=== PATIENT | female | born 1960 | race Caucasian/White ===

== ENCOUNTER 2022-09-03 23:31 | Emergency (ER) | payer OTHER, SELFPAY ==
--- NOTE | ~2022-09-03 | CT_ITS ---
EXAMINATION: CT CHEST WITHOUT CONTRAST CLINICAL INFORMATION: Severe pain in the right scapular area. COMPARISON: None TECHNIQUE: Multidetector volumetric CT imaging of the chest was done. Axial MIP volume rendering provided. Sagittal and coronal reformatted images were obtained. This CT examination was performed using dose optimization techniques as appropriate, variously including the following: *Automated exposure control *Adjustment of mA and/or kV according to patient size (this includes techniques or standardized protocols for targeted exams where dose is matched to indication/reason for exam; i.e. extremities or head) *Use of iterative reconstruction technique DLP: 345 mGy-cm FINDINGS: LUNGS: Biapical subpleural thickening/scarring. Diffuse bronchial wall thickening and mild early centrilobular emphysematous changes. The central airways are patent. No focal consolidation or significant groundglass disease. There are areas of subsegmental mucus impaction in the right lower lobe, for instance image 436, series 4. There is a 0.6 cm groundglass nodule in the right upper lobe (4:209). There are a few additional sub-2 mm solid pulmonary nodules bilaterally, for instance in the left upper lobe on image 262, series 4. There is a calcified granuloma in the left upper lobe (4:264). MEDIASTINUM: Normal heart size. No pericardial effusion. No pathologically enlarged mediastinal lymph nodes. Normal appearance of the thyroid gland. Evaluation of the hilar structures is limited in the absence of IV contrast. CORONARY ARTERY CALCIFICATION: Present, mild to moderate. PLEURA: No pleural effusion or pneumothorax. AXILLA: No pathologically enlarged axillary lymph nodes. No chest wall mass. UPPER ABDOMEN: There are a few too small to characterize liver hypodensities, for instance in the left hepatic lobe images 72 and 77 and right hepatic lobe image 72, series 3. There are scattered calcifications in the pancreas, suggesting sequela of chronic pancreatitis. OSSEOUS STRUCTURES: No acute or aggressive appearing osseous abnormalities. Multilevel cervical thoracic spinal spondylosis. No acute fractures nor significant osteoarthritis of the shoulders. CT/CT chest wo IV con IMPRESSION: 1. There is a 0.6 cm groundglass nodule in the right upper lobe and a few additional sub-2 mm solid pulmonary nodules. 2. Diffuse bronchial wall thickening with scattered areas of mucus plugging suggesting small airways disease. 3. Query early centrilobular emphysematous changes. 4. There are a few too small to characterize liver hypodensities, which could be further evaluated with a dedicated liver ultrasound. 5. Scattered calcifications in the pancreas suggesting sequela of chronic pancreatitis. Assuming patient has no history of malignancy, recommend follow-up per Fleischner Society recommendations. According to the UPDATED 2017 Fleischner Society recommendations, the advised followup imaging for a single pure ground-glass nodule measuring 6 mm or greater is: CT at 6-12 months to confirm persistence, then CT every 2 years until 5 years if it persists.
[2022-09-04 00:17] VITALS: BP 138/54; PULSE 85; RESP 15; TEMP 36.5; O2SAT 95; BMI 27.0
--- NOTE | 2022-09-04 01:41 | ECG_ITS ---
Test Reason : ARM PAIN RADIATING Blood Pressure : / mmHG Vent. Rate : 087 BPM Atrial Rate : 087 BPM P-R Int : 170 ms QRS Dur : 088 ms QT Int : 354 ms P-R-T Axes : 087 074 045 degrees QTc Int : 425 ms Normal sinus rhythm Normal ECG No previous ECGs available Referred By: Kayla Villanueva Electronically Signed By:BERNARDO YOO MD
[2022-09-04 02:00] VITALS: BP 146/91; PULSE 92; RESP 16; O2SAT 98
--- NOTE | 2022-09-04 02:23 | ED.GENADULT ---
HPI - General Adult General Chief complaint: General Medical Stated complaint: Shoulder pain, no injury Time Seen by Provider: 09/04/22 01:10 Source: patient Mode of arrival: ambulatory History of Present Illness HPI narrative: 62-year-old female states that she was moving boxes yesterday and then developed acute onset of pinching/burning pain through her shoulder blade across her shoulder and down into her right upper extremity that she states was not associated with any falls or injury. Related Data Previous Rx's Medication Instructions Recorded cyclobenzaprine 10 mg tablet 10 mg PO BEDTIME PRN muscle spasm 09/04/22 #4 tabs ketorolac 10 mg tablet 10 mg PO Q6H PRN pain 5 days #20 09/04/22 tabs Allergies Allergy/AdvReac Type Severity Reaction Status Date / Time Unable to Assess Allergy Verified 09/04/22 01:37 Review of Systems Review of Systems: Pertinent positives and negatives as stated in HPI 10 point review of systems is otherwise negative. PMFSH Past Medical History Source: nursing notes reviewed Social History Social History Alcohol intake: never Smoked in Last 30 Days: No Use of substances other than those prescribed or required for medical reasons: No Advance Directives: No Physical Exam ED Vital Signs: Vital Signs - 24 hr 09/04/22 00:17 09/04/22 02:00 Temperature 97.7 F Pulse Rate 85 92 Respiratory Rate 15 16 Blood Pressure 138/54 L 146/91 H Pulse Oximetry 95 98 Oxygen Delivery Method Room Air Room Air BMI result Body Mass Index 27.0 VITAL SIGNS: Reviewed. GENERAL: Well developed, well nourished, in no acute distress. HEAD: Normocephalic/atraumatic EYES: PERRLA, EOMI EARS: Ext canals without abnormality OROPHARYNX: no oral lesions noted, posterior pharynx clear LUNGS: Normal breath sounds. No adventitious sounds or accessory muscle use. SpO2<98> CARDIOVASCULAR: Regular rate and rhythm without noted murmurs ABDOMEN: Soft, non-tender, non-distended with bowel sounds. MUSCULOSKELETAL: No tenderness, deformities, or effusions noted on gross inspection. EXTREMITIES: No cyanosis, clubbing or edema;RUE: Pain to palpation and crossed right AC joint at shoulder as well as noted muscle spasm across the upper back involving the superior aspect of the shoulder blade. Otherwise, distal evaluation of right upper extremity is without acute findings as sensation as well as vascular is intact with strong palpable radial and ulnar pulses.. SKIN: Inspection of the skin reveals no rashes NEUROLOGIC: Alert and oriented x 4. Strength and sensation to light touch were grossly intact x 4. Course Course Course Narrative: 62-year-old female with history and clinical presentation consistent with suspected pinched nerve, but will obtain CT of the chest and on review of those findings there are only noted pulmonary nodules but otherwise no evidence of pneumothorax or significant bony/joint injury. Patient received combination analgesics as well as muscle relaxants with gradual improvement of her pain with application of heat compresses. She is otherwise discharged home in stable condition. Medications Administered Discontinued Medications Generic Name Dose Route Start Last Admin Trade Name Freq PRN Reason Stop Dose Admin Acetaminophen 975 mg 09/04/22 02:24 09/04/22 02:28 Acetaminophen 325 Mg Tablet PO 09/04/22 02:25 975 mg ONCE ONE Administration Cyclobenzaprine HCl 10 mg 09/04/22 02:20 09/04/22 02:24 Cyclobenzaprine Hcl 10 Mg Tablet PO 09/04/22 02:21 10 mg ONCE ONE Administration Ketorolac Tromethamine 15 mg 09/04/22 02:24 09/04/22 02:28 Ketorolac Tromethamine 15 Mg/Ml Vial IM 09/04/22 02:25 15 mg ONCE ONE Administration Discharge Plan Discharge Clinical Impression: Muscle strain, Muscle spasm Patient Disposition: Home, Self-Care Instructions: Muscle Spasm (ED) Additional Instructions: 1. Tylenol 1000 mg, orally, every 6 hours as needed for pain control. Do not exceed 4000 mg within 24 hours. 2. Lidocaine patch, apply to area of maximal tenderness as directed on the outside packaging. 3. Recommend continued warm compresses for additional symptom relief. 4. Please follow-up with your primary care provider in the next 1-2 days for re-evaluation further outpatient management. Return to the ER for worsening symptoms. Prescriptions: New ketorolac 10 mg tablet 10 mg PO Q6H PRN (Reason: pain) 5 Days Qty: 20 0RF Rx Instructions: Patient received Toradol in the emergency room. cyclobenzaprine 10 mg tablet 10 mg PO BEDTIME PRN (Reason: muscle spasm) Qty: 4 0RF
[2022-09-04] MEDS: Cyclobenzaprine HCl 10 MG TABLET PO (02:24)
[2022-09-04] MEDS: Ketorolac Tromethamine 15 MG/ML VIAL IM (02:28)
[2022-09-04] MEDS: Acetaminophen 325 MG TABLET 975 MG PO (02:28)
--- NOTE | 2022-09-04 03:33 | PC.NURSE ---
pt right shoulder in 10/10 pain, pt unable to sit due to rad to lower back. at this time the ice was not working nor the medications so heat pack appied.
--- NOTE | 2022-09-04 05:03 | PC.NURSE ---
pt is now able to lay in the bed. pain leve from 25/10 to 5/10 after alternating heat and cold packs. pt is able to lay on her side supine. no distress and feels ready for discharge with a plan for pain. provider made aware.
[2022-09-04] MEDS: Lidocaine 4 % Patch ADH..PATCH 1 PATCH TRANSDERMA (06:05)
== END 2022-09-04 06:16 | disposition home or self-care (01) ==
PROVIDERS: Emergency Provider Student in an Organized Health Care Education/Training Program
DX: M25.511 Pain in right shoulder (principal); R10.11 Right upper quadrant pain; R07.89 Other chest pain; M54.6 Pain in thoracic spine
CPT/HCPCS: 71250; 93005; 96372; 99284; J1885

== ENCOUNTER 2025-06-30 09:28 | Outpatient (AMB) | payer OTHER, SELFPAY ==
--- OUTSIDE RECORDS SUMMARY | 2025-06-27 09:30 | XMS_ITS | Encounter Summary ---
Author Organization [facility] Address [address] [place] [address] Care Team Providers Care Automatic Machine Attendant Name Role Phone Deanna Marie MD Primary Care Provider [phone] Reason for Referral * Consultation (Routine) - Pending Review Specialty Diagnoses / Procedures Referred By Alonzo t Referred To Contact Nutrition / Internal Medicine Diagnoses Overweight (BMI 25.0-29.9) Deanna Marie MD [address] [place] [phone] Phone: tel: fax: Chichi Fox, RD [address] [place] [phone] Phone: tel: fax: Referral ID Status Reason Start Date Expiration Date Visits Requested Visits Authorized [id number] Pending Review Specialty Services Required 06/27/2025 06/27/2026 1 1 Reason for Visit * Reason Comments Physical Exam Tdap 2023 Encounter Details Date Type Department Care Team (Late st Contact Info) Description 06/27/2025 9:30 AM EDT Office Visit Adult Medicine [address] [phone] Deanna Marie MD [address] [place] [address] PE (physical exam), annual (Primary Dx); Lung nodule; Prediabetes; Overweight (BMI 25.0-29.9) Social History Tobacco Use Types Packs/Day Years Used Date Smoking Tobacco: Never Smokeless Tobacco: Never Tobacco Cessation:Counseling Given: Not Answered Alcohol Use Standard Drinks/Week Comments Yes 0 (1 standard drink = 0.6 oz pur e alcohol) Housing Instability Answer Date Recorde d Are you worried that in the next 2 months you may not have stable housing? No 06/26/2025 Food Access & Nutrition Answer Date Rec orded Do you have access to a vari ety of food including fruits and vegetables? Yes 06/26/2025 Access to Healthcare Answer Date Record ed Within the last 3 months, ho w many times did you visit the emergency department for your medical care? 0 06/26/2025 Health Literacy Answer Date Recorded How often do you need to hav e someone help you when you read instructions, pamphlets, or other written material from your doctor or pharmacy? Never 06/26/2025 Caregiver: How often do you need to have someone help you when you read instructions, pamphlets, or other written material from your doctor or pharmacy? Not on file 06/26/2025 Financial Risk Answer Date Recorded How hard is it for you to pa y for the very basics like food, housing, medical care, and air conditioning / heating? Not very hard 06/26/2025 Transportation Answer Date Recorded Has the lack of transportati on kept you from meetings, work, or from getting things needed for daily living? No Has the lack of transportati on kept you from medical appointments or from getting medications? No 06/26/2025 Social Isolation Answer Date Recorded How often do you feel lonely or isolated from th ose around you? Never 06/26/2025 Food Risk Answer Date Recorded Within the past 12 months we worried whether our food would run out before we got money to buy more. Never true 06/26/2025 Within the past 12 months th e food we bought just didn't last and we didn't have money to get more. Never true 06/26/2025 Dependent Care Answer Date Recorded Do you need help finding or paying for care for your loved ones. For example, child and family services worker or elderly care for an older adult? No 06/26/2025 Education Answer Date Recorded Do you think completing more education or training, like finishing a GED, going to college, or learning a trade, would be helpful for you? No 06/26/2025 Employment and Income Answer Date Recor ded During the last four weeks, have you been actively looking for work? No 06/26/2025 Living Situation Answer Date Recorded What is your living situation? 0 06/26/2025 Comments No Sex and Gender Information Value Date Recorded Sex Assigned at Not on file Legal Sex Female 1:39 AM EST Gender Identity Not on file Sexual Orientation Not on file documented as of this encounter Last Filed Vital Signs Vital Sign Reading Time Taken Comments Blood Pressure 132/78 06/27/2025 9:42 AM EDT Pulse 82 06/27/2025 9:42 AM EDT Temperature 36.6 C (97.8 F) 06/27/2025 9:42 AM EDT Respiratory Rate 14 06/27/2025 9:42 AM EDT Oxygen Saturation 98% 06/27/2025 9:42 AM EDT Inhaled Oxygen Concentration - - Weight 84.8 kg (187 lb) 06/27/2025 9:42 AM EDT Height 175.3 cm (5' 9 ) 06/27/2025 9:42 AM EDT Body Mass Index 27.62 06/27/2025 9:42 AM EDT documented in this encounter Ordered Prescriptions Prescription Sig Dispense Quantity Refills Last Filled Start Date End Date EPINEPHrine (EPIPEN) 0.3 mg/0.3 mL injection Inject 0.3 mL (0.3 mg total) into the thigh if needed for anaphylaxis. Call 911 after use. 1 each 06/27/2025 06/27/2026 documented in this encounter Progress Notes * Deanna Marie MD - 06/27/2025 9:30 AM EDTAssociated Problem(s): Lung nodule Lung nodule- last CT in July 2024-- stable since 2021, repeat in 2 years in 2025. * Deanan Marie MD - 06/27/2025 9:30 AM EDT Images from the original note were not included. Patient Education Well Visit, Ages 18 to 65: Care Instructions Well visits can help you stay healthy. Your doctor has checked your overall health and may have suggested ways to take good care of yourself. Your doctor also may have recommended tests. You can helpprevent illness with healthy eating, good sleep, vaccinations, regular exercise, and other steps. Get the tests that you and your doctor decide on. Depending on your age and risks, examples might include screening for diabetes; hepatitis C; HIV; and cervical, breast, lung, and colon cancer. Screening helps find diseases before any symptoms appear. Eat healthy foods. Choose fruits, vegetables, whole grains, lean protein, and low-fat dairy foods. Limit saturated fat and reduce salt. Limit alcohol. Men should have no more than 2 drinks a day. Women should have no more than 1. For some people, no alcohol is the best choice. Exercise. Get at least 30 minutes of exercise on most days of the week. Walking can be a good choice. Reach and stay at your healthy weight. This will lower your risk for many health problems. Take care of your mental health. Try to stay connected with friends, family, and community, and find ways to manage stress. If you're feeling depressed or hopeless, talk to someone. A counselor can help. If you don't have acounselor, talk to your doctor. Talk to your doctor if you think you may have a problem with alcohol or drug use. This includes prescription medicines, marijuana, and other drugs. Avoid tobacco and nicotine: Don't smoke, vape, or chew. If you need help quitting, talk to your doctor. Practice safer sex. Getting tested, using condoms or dental dams, and limiting sex partners can help prevent STIs. Use control if it's important to you to prevent . Talk with your doctor about your choices and what might be best for you. Prevent problems where you can. Protect your skin from too much sun, wash your hands, brush your teeth twice a day, and wear a seat belt in the car. Where can you learn more? Scan the QR code or Go to https://www.[employer].net/juanyennifer Enter P072 in the search box to learn more about Well Visit, Ages 18 to 65: Care Instructions. Current as of: February 20, 2024 Content Version: 14.5 ?? [id number] [place]. Care instructions adapted under license by your healthcare professional. If you have questions about a medical condition or this instruction, always ask your healthcare professional. [employer], disclaims any warranty or liability for your use of this information. * Deanna Marie MD - 06/27/2025 9:30 AM EDT Images from the original note were not included. Physical Examination Jennifer Manzo is a 65 y.o. female presenting for Physical Exam (Tdap 2023) Subjective History Of Present Illness: Patient is a 65 y/o female who is here for physical exam. Lung nodule- last CT in July 2024-- stable since 2021, repeat in 2 years in 2025. Following with [facility] for skin checks. UTD with eye exam and dental visit. Comprehensive Medical and Social History: Patient Active Problem List Diagnosis Allergic rhinitis Displacement of lumbar intervertebral disc without myelopathy Gastroesophageal reflux disease Lung nodule Sprain of metacarpophalangeal (MCP) joint of left little finger Varicose veins of both lower extremities Allergies Allergen Reactions Grass Pollen trees Mold Nitrofurantoin migraine jaeger Other Penicillin V Potassium Other Dizzy, edema Sulfa (Sulfonamide Antibiotics) Venom-Wasp Current Outpatient Medications Medication Instructions acetaminophen (TYLENOL) 500 mg tablet 1 tablet, Every 6 hours PRN albuterol HFA (PROAIR HFA ; PROVENTIL HFA ; VENTOLIN HFA) 90 mcg/actuation inhaler 2 puffs, 4 timesdaily PRN aspirin (ASPIR-81 ORAL) 81 mg, Every 7 days calcium carbonate (OS-EUGENE) 1,250 mg, oral cholecalciferol (VITAMIN D-3) 25 mcg (1,000 unit) capsule Take by mouth. 3-4 x per week CRANBERRY ORAL Take by mouth. EPINEPHrine (EPIPEN) 0.3 mg, intramuscular, As needed, Call 911 after use. Fe gluconate/vit C/folic acid (IRON-C ORAL) Take by mouth. FLAXSEED ORAL Take by mouth. 3-4 times a week ibuprofen (ADVIL,MOTRIN) 600 mg tablet 1 tablet, Every 6 hours PRN MULTIVITAMIN ORAL Take by mouth. NON FORMULARY Once a month Past Medical History: Diagnosis Date Actinic keratosis, hx of DX:Actinic keratosis, hx of Lumbago 05/23/2008 DX:Lumbago Past Surgical History: Procedure Laterality Date COLONOSCOPY 05/31/2011 PROCEDURE: HISTORICAL COLONOSCOPY; COMMENT: normal; repeat in ten years COLONOSCOPY 04/07/2022 PROCEDURE: HISTORICAL COLONOSCOPY; COMMENT: Normal repeat 10 years Social History Socioeconomic History Marital status: Spouse name: None Number of children: None Years of education: None Highest education level: None Occupational History None Tobacco Use Smoking status: Never Smokeless tobacco: Never Substance and Sexual Activity Alcohol use: Yes Drug use: No Sexual activity: None Other Topics Concern None 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 Their 2 daughters are coming back from college tomorrow for break. Oldest son is out of the home. 1 dog, 1 cat, and 1 rabbit in her home. Nonsmoking household. She is up to date 12/15/2015: still studying in [place]; graduating in February 2016. Family History Problem Relation Name Age of Onset Breast cancer Mother Other (Other: prostate cancer) Father diagnosed at 86, at 88 Heart failure Father in 80s Diabetes Mother's side great aunts and uncles Breast cancer Other m.great aunt Colon cancer Neg Hx Ovarian cancer Neg Hx Immunization History Administered Date(s) Administered DTP 1961, 1961, 1961, 07/14/1962, 12/07/1962, 10/23/1967, 10/23/1970 Hepatitis A Adult (Havrix; Vaqta) 19yo and older 01/07/2008, 09/03/2008 Hepatitis B (Pqibqnp-Q-Rywzv, Recombivax HB-Adult) 19yo and older 01/16/2013, 02/13/2013, 07/17/2013 IPV Inactivated polio (Ipol) 6wks and older 1961, 1961, 01/11/1962 Influenza trivalent, 0.5mL, preservative free (Fluarix; FluLaval; Fluzone) ages 6mo and older (Afluria) 3 years and older 08/04/1998, 11/18/1999, 09/28/2009 Influenza, Unspecified 08/26/2019 MMR, measles mumps and rubella Live (Priorix; M-M-R II) 12mo and older 01/16/2013, 05/29/2013 Measles 04/03/1979 Moderna SARS-CoV-2 COVID-19, mRNA, LNP-S, preservative free 12/23/2020, 01/20/2021 OPV 04/22/1979 Pneumococcal conjugate 20 valent (Prevnar 20, PCV 20) 2mo and older 02/23/2024 Rubella 10/23/1969 Smallpox 02/22/1962 Td Tetanus diptheria (Tdvax) 7yo and older 07/29/1975 Td, Unspecified 09/22/2004 Tdap Tetanus diptheria acellular pertussis (Boostrix; Adacel) 7yo and older 01/09/2013, 05/27/2024 Zoster recombinant (Shingrix) 19yo and older 07/26/2024, 09/27/2024 Health Maintenance Topic Date Due COVID-19 Vaccine (3 - Moderna risk series) 02/17/2021 HIV Screening Never done Influenza Vaccine (1) 06/23/2025 Breast Cancer Screening 11/01/2025 Social Influencers of Health Screening 06/26/2026 Cervical Cancer Screening: HPV 12/08/2026 Cholesterol Screening (Lipid Panel) 07/23/2029 Colorectal Cancer Screening: Colonoscopy 04/07/2032 DTaP,Tdap,and Td Vaccines (10 - Td or Tdap) 05/27/2034 RSV Immunization Adult Patients (1 - 1-dose 75+ series) 01/03/2036 Hepatitis B Vaccines Completed IPV Vaccines Completed Pneumococcal Vaccine: 50+ Years Completed Zoster Vaccines Completed Hepatitis C Screening Completed Depression Screening Completed HIB Vaccines Aged Out Hepatitis A Vaccines Aged Out MMR Vaccines Aged Out Varicella Vaccines Aged Out Meningococcal ACWY Vaccine Aged Out Meningococcal B Vaccine Aged Out HPV Vaccines Aged Out RSV Immunization Patients Under 20 months Aged Out Depression Screening (PHQ2/9): Depression Screening Over the last 2 weeks, how often have you been bothered by little interest or pleasure in doing things?: (Patient-Rptd) Not at all Over the last 2 weeks, how often have you been bothered by feeling down, depressed, or hopeless?: (Patient-Rptd) Not at all Depression Risk: (Patient-Rptd) 0 PHQ9 Full Set of Questions Over the last 2 weeks, how often have you been bothered by little interest or pleasure in doing things?: (Patient-Rptd) Not at all Over the last 2 weeks, how often have you been bothered by feeling down, depressed, or hopeless?: (Patient-Rptd) Not at all PHQ -9 Depression Risk Score: (Patient-Rptd) 0 Screening Result: (Patient-Rptd) Negative Risk Category: (Patient-Rptd) Negative Anxiety Screening: Social Influencer of Health (SIOH): Social Influencers of Health Within the past 12 months we worried whether our food would run out before we got money to buy more.: (Patient-Rptd) Never true Within the past 12 months the food we bought just didn't last and we didn't have money to get more.: (Patient-Rptd) Never true How hard is it for you to pay for the very basics like food, housing, medical care, and air conditioning / heating?: (Patient-Rptd) Not very hard Are you worried that in the next 2 months you may not have stable housing?: (Patient-Rptd) No Do you have access to a variety of food including fruits and vegetables?: (Patient-Rptd) Yes Within the last 3 months, how many times did you visit the emergency department for your medical care?: (Patient-Rptd) 0 Has the lack of transportation kept you from meetings, work, or from getting things needed for daily living?: (Patient-Rptd) No Has the lack of transportation kept you from medical appointments or from getting medications?: (Patient-Rptd) No How often do you feel lonely or isolated from those around you?: (Patient-Rptd) Never How often do you need to have someone help you when you read instructions, pamphlets, or other written material from your doctor or pharmacy?: (Patient- Rptd) Never Review of Systems: Review of systems: Pertinent items are noted in HPI Objective BP 132/78 Pulse 82 Temp 36.6 ??C (97.8 ??F) (Temporal) Resp 14 Ht 1.753 m (69 ) Wt 84.8 kg (187 lb) BMI 27.62 kg/m?? SpO2: 98 % Blood pressure 132/78, pulse 82, temperature 36.6 ??C (97.8 ??F), temperature source Temporal, resp. rate 14, height 1.753 m (69 ), weight 84.8 kg (187 lb), SpO2 98%. Body mass index is 27.62 kg/m??.BMI is greater than 25.0 (above the normal range) - see Plan APPEARANCE: Alert and in no acute distress EYES: PERRLA, conjunctiva and sclera normal EARS: External ears normal. Canals clear. TMs normal. NOSE/SINUS: Nares normal. Septum midline. Mucosa normal. No drainage or sinus tenderness MOUTH/THROAT: no erythema, lesions, or exudates NECK: Neck supple, no adenopathy, thyroid symmetric and of normal size HEART: RRR with normal S1 and S2, no murmurs, no gallops, no JVD appreciated LUNG: clear to auscultation bilaterally ABDOMEN: Bowel sounds normoactive, no bruits and soft, non-tender, without organomegaly or palpablemasses BACK: no pain to palpation EXTREMITIES: Extremities warm and well perfused without clubbing, cyanosis, or edema NEURO: Awake, alert and oriented x 3 and Normal gait SKIN: Skin color, texture, turgor normal. No rashes or lesions. Assessment/Plan Patient completed physical examination today. Health Care Maintenance and Immunizations reviewed. 1. Health maintenance: The patient presented for an evaluation of general health. As part of this visit, we reviewed the following issues, which are considered an essential part of preventative health in this age group: - Breast cancer screening, which includes clinical exam and mammograms annually - mammogram up-to-date - Colon cancer screening (colonoscopy every 10 years/annual FOBT plus flexi sigmoidoscopy every 5 years/double-contrast BE every 5 years/Cologuard every 3 years/Annual FOBT) - up to date - Cervical cancer testing every 1-5 years - patient is up-to-date - Blood pressure annual screening performed - Cholesterol screening every five years - ordered - Osteoporosis prevention including calcium/vitamin D intake, weight bearing exercise & smokingcessation - Nutritional and exercise counseling - patient advised to pursue at least 30 minutes of exercise most days of the week, limit portion sizes, eat breakfast, and avoid eating after dinner - Counseling of injury prevention including fire prevention, smoke alarms and seat belt usage - Screening for depression - using the PHQ-9 - Education about skin cancer - Recommendations about immunizations - patient is up-to-date on immunizations - Recommendation of an eye exam for glaucoma every 2-4 years in this age range - patient is up-to-date - Screening for substance abuse (including tobacco, alcohol, and recreational drugs) - see Substance & Sexuality section of medical record - Genetic cancer risk screening - NO INDICATION: Hereditary Cancer Syndrome Risk Assessment completed and evaluated. No indication found for genetic testing at this time. - In addition to reviewing these issues, I have reviewed the following sections of the chart: Past Medical History, Social History, and Social History - Did you have a dental visit in the last 12 months? Yes - Did you have a dental problem in the last 6 months? No Assessment & Plan PE (physical exam), annual Orders: CBC and differential; Future Comprehensive metabolic panel; Future Lipid panel with reflex to direct LDL; Future Lung nodule Lung nodule- last CT in July 2024-- stable since 2021, repeat in 2 years in 2025. Prediabetes Orders: Hemoglobin A1c; Future Overweight (BMI 25.0-29.9) Orders: Ambulatory referral to Nutrition Services; Future Discussed the patient's BMI with her. The BMI is above average. The patient received dietary education, exercise education, and refer to nutrition because they have an above normal BMI. Patient was counseled on the following: Eat healthy foods. Choose fruits, vegetables, whole grains,lean protein, and low-fat dairy foods. Limit saturated fat and reduce salt. Exercise. Get at least 30 minutes of exercise on most days of the week. Walking can be a good choice. Reach and stay at your healthy weight. This will lower your risk for many health problems. Take care of your mental health. Try to stay connected with friends, family, and community, and find ways to manage stress. Avoid tobacco and nicotine: Don't smoke, vape, or chew. If you need help quitting, please do not be afraidto reach out. [place] your teeth twice a day and follow routinely with the dentist. Safety Issues- Always wear a seat belt and a helmet when in a bike or motorcycle. Apply Sunscreen daily to your face and body if appropriate. Aim to get at least 7 hours of sleep to maintain good health and well-being. Deanna Marie MD ADULT MEDICINE [address] Dept: [phone] Dept Date of Service: 06/27/2025 documented in this encounter Plan of Treatment Upcoming Encounters Date Type Department Care Team (Late st Contact Info) Description 11/03/2025 7:30 AM EST Appointment Radiology Department - [address] [phone] Scheduled Orders Name Type Priority Associated Diagnoses Orde r Schedule CBC and differential Lab Routine PE (physical exam), annual Expected: 06/27/2025, Expires: 12/25/2025 Comprehensive metabolic panel Lab Routine PE (physical exam), annual Expected: 06/27/2025, Expires: 12/25/2025 Lipid panel with reflex to direct LDL Lab Routine PE (physical exam), annual Expected: 06/27/2025, Expires: 06/27/2026 Hemoglobin A1c Lab Routine Prediabetes Expected: 06/27/2025, Expires: 12/25/2025 Scheduled Referrals Name Type Priority Associated Diagnoses Order Schedule Ambulatory referral to Nutrition Services Outpatient Referral Routine Overweight (BMI 25.0-29.9) 1 Occurrences starting 06/27/2025 until 06/27/2026 documented as of this encounter Visit Diagnoses Diagnosis PE (physical exam), annual- Primary Lung nodule Other diseases of lung, not elsewhere classified Prediabetes Other abnormal glucose Overweight (BMI 25.0-29.9) Overweight documented in this encounter Historical Medications * This list may reflect changes made after this encounter. calcium carbonate (OS-EUGENE) 1250 mg (500 mg elemental calcium) chewable tablet Chew 1 tablet (1,250 mg total). added in this encounter Additional Health Concerns Assessment Noted Time PHQ-9 Depression Total Score: 0 06/26/20 25 9:55 PM EDT documented as of this encounter Care Teams Automatic Machine Attendant Relationship Specialty Start Date End Date Deanna Marie MD [address] [place] [phone] PCP - General Internal Medicine 06/06/22 documented as of this encounter
--- OUTSIDE RECORDS SUMMARY | 2025-06-30 10:41 | XMS_ITS | Encounter Summary ---
Author Organization [facility] Address [address] [place] [address] Care Team Providers Care Millstone Cleaner Name Role Phone Becca Butler MD Primary Care Provider Yasemin Kulkarni MD Primary Care Provider Unavailable Iván Rodrigues Primary Care Provider [phone] Deanna Maire MD Primary Care Provider [phone] Fracisco Hilario Primary Care Provider [phone] Reason for Visit * Reason Comments medication problems Encounter Details Date Type Department Care Team Description 03/15/2001 Telephone Adult Medicine [address] [id number] Jose Booth PA-C medication problems Social History Tobacco Use Types Packs/Day Years Used Date Smoking Tobacco: Never Assessed Sex Assigned at Date Recorded Not on file Job Start Date Occupation Industry Not on file Not on file Not on file documented as of this encounter Miscellaneous Notes * Telephone Encounter - 03/15/2001 11:03 AM EDTDAVIXavier BOOTH SPOKE TO PT AND CALLED IN DOXYCYCLINE 100MG BID-JAMMIE CARDONA * Telephone Encounter - 03/15/2001 9:27 AM EDT [facility] Telephone Triage Documentation CHIEF COMPLAINT:bactrim giving her diahrrea, and nausea. taken 3 pills.taking med with food. no vomi ting. taking for sinus infection, does not remember if she has had different antibiotics before for sinus infection. i will talk with jose to see if a different ab can be substituted. PATIENT'S PCP:Dr. Apolinar Ruiz LMP/EDC: MEDS:jc qd. ALLERGIES:pcn PMH:allergies DISPOSITION:Call referred to jose RAHMAN pac REFERENCE: CALLER UNDERSTANDS & AGREES WITH ADVICE:YES * Telephone Encounter - 03/15/2001 9:20 AM EDTCALL RECEIVED. Contact: self [phone] pt is calling to speak to mr booth about medication bactrim 800 /160 mg 20 bid and it is making her si ck is calling to get some else please call pt at above number documented in this encounter Plan of Treatment Not on file documented as of this encounter Visit Diagnoses Not on filedocumented in this encounter Care Teams Millstone Cleaner Relationship Specialty Start Date End Date Becca Butler MD PCP - General 01/20/11 03/15/22 [place]-Yasemin Pendleton MD PCP - General 06/23/0601/19 Iván Rodrigues [address] [place] [id number] PCP - General 02/14/1998 06/22/06 Deanna Marie MD [address] [place] [id number] PCP - General Internal Medicine 06/06/22 Fracisco Hilario [address] [place] [phone] PCP - General Internal Medicine 04/07/22 06/05/22 documented as of this encounter
--- OUTSIDE RECORDS SUMMARY | 2025-06-30 10:41 | XMS_ITS ---
Author Name [facility] Organization Unknown Encounters Encounter Type Encounter Reason Primary Diagnosis Location Date Ambulatory [facility], [facility]. ([facility]) 10/20/2024 Care Team Organization Name Specialty Phone Email Start Date End Da te [facility] Deanna Primary Care 03/31/2023 024 [facility] Primary Care 02/27/2023 024 [facility] la [place] [facility] Primary Care 10/31/2022 06/10/2024 [facility] [place] [facility] Primary Care 08/30/2022 06/10/2024
--- OUTSIDE RECORDS SUMMARY | 2025-06-30 10:41 | XMS_ITS | Clinical Summary ---
Author Organization [facility] Address [address] [place] [address] Care Team Providers Care Medical Social Worker Name Role Phone Becca Butler MD Primary Care Provider [phone] Allergies Active Allergy Reactions Criticality Noted Date Comments Elemental Sulfur 05/15/2019 Nitrofurantoin 05/15/2019 Other 05/15/2019 Dust/Mold/Pollen/Grass/Trees/Weeds Penicillins 05/15/2019 Medications Medication Sig Dispensed Refills Start Date End Date Status UNABLE TO FIND Allergy Injections 0 Ac tive Fexofenadine HCl (ANDRZEJ PO) Take by mouth. 0 Active raNITIdine HCl (ACID INSIDE CONTRACTOR SALES PO) Take by mouth. 0 Active Multiple Vitamins-Minerals (MULTIVITAMIN PO) Take by mouth. 0 Act rubén Flaxseed, Linseed, (FLAX SEEDS PO) Take by mouth. 0 Activ e UNABLE TO FIND Tumeric 0 Active aspirin 81 MG tablet Take 81 mg by mouth 2 (two) times a week. 0 Active Active Problems Problem Noted Date Diagnosed Date Sprain of metacarpophalangea l (MCP) joint of left little finger 05/15/2019 Social History Tobacco Use Types Packs/Day Years Used Date Smoking Tobacco: Never Smokeless Tobacco: Never Sex and Gender Information Value Date Recorded Sex Assigned at Not on file Gender Identity Not on file Sexual Orientation Not on file Job Start Date Occupation Industry Not on file Not on file Not on file Last Filed Vital Signs Vital Sign Reading Time Taken Comments Blood Pressure 141/76 03/16/2023 9:36 AM EDT Pulse 70 03/16/2023 9:36 AM EDT Temperature 36.2 C (97.2 F) 03/16/2023 9:36 AM EDT Respiratory Rate - - Oxygen Saturation 97% 03/16/2023 9:36 AM EDT Inhaled Oxygen Concentration - - Weight 87.1 kg (192 lb) 03/16/2023 9:36 AM EDT Height 176.5 cm (5' 9.5 ) 03/16/2023 9:36 AM EDT Body Mass Index 27.95 03/16/2023 9:36 AM EDT Plan of Treatment Health Maintenance Due Date Last Done Comments Hepatitis C Screening 1961 COVID-19 Vaccine (#1) 1961 Depression Screening 1973 BMI Counseling 1979 Preventative Health Evaluation 1979 Cervical Cancer Screening (Pap Smear) 1982 Colon Cancer Screening (Colonoscopy) 2006 Breast Cancer Screening (Mammogram) 2011 Shingrix-Zoster Vaccine (1 of 2) 2011 DTap / Tdap / Td (7 - Td or Tdap) 01/09/2023 01/09/2013, 07/29/1975, 10/23/1970, Additional history exists Influenza Vaccine (#1) 2025 9, 11/18/1999, 08/04/1998 Pneumococcal Vaccine (1 of 1 - PCV) 2026 RSV Adult > 60+ Yrs or (1 - 1-dose 75+ series) 01/03/2036 Hepatitis B Vaccines Completed 07/17/2013, 02/13/2013, 01/16/2013 Pneumococcal Vaccine Aged Out No long er eligible based on patient's age to complete this topic RSV Ped < 20 months Aged Out No longe r eligible based on patient's age to complete this topic Care Teams Medical Social Worker Relationship Specialty Start Date End Date Becca Butler MD PCP - General Internal Medicine 05/15/19
--- OUTSIDE RECORDS SUMMARY | 2025-06-30 10:42 | XMS_ITS | Encounter Summary ---
Author Organization [facility] Address [address] [place] [address] Care Team Providers Care Traffic Expert Name Role Phone Deanna Marie MD Primary Care Provider [phone] Reason for Referral * Radiology Services (Routine) - Closed Specialty Diagnoses / Procedures Referred By Alonzo stiles Referred To Contact Radiology Diagnoses Lung nodule Procedures CAT SCAN OF CHEST NO CONTRAST Deanna Marie MD [address] [place] [address] [address] [address] Referral ID Status Reason Start Date Expiration Date Visits Re quested Visits Authorized [id number] Closed 06/15/2023 12/12/2023 1 1 Encounter Details Date Type Department Care Team Description 03/15/2023 Orders Only Adult Medicine [address] [address] Deanna Marie MD [address] [place] [address] Lung nodule (Primary Dx) Social History Tobacco Use Types Packs/Day Years Used Date Smoking Tobacco: Never Smokeless Tobacco: Never Alcohol Use Standard Drinks/Week Comments Yes 0 (1 standard drink = 0.6 oz pur e alcohol) rare Sex Assigned at Date Recorded Not on file Job Start Date Occupation Industry Not on file Not on file Not on file COVID-19 Exposure Response Date Recorded In the last 10 days, have yo u been in contact with someone who was confirmed or suspected to have Coronavirus/COVID-19? No / Unsure 03/10/2023 8:19 AM EDT documented as of this encounter Plan of Treatment Not on file documented as of this encounter Results * CAT SCAN OF CHEST NO CONTRAST (06/20/2023 8:24 AM EDT) 06/20/2023 9:26 AM EDT Impressions [facility] - 06/20/2023 9:41 AM EDT IMPRESSION: Irregular shaped right lower lobe pulmonary nodule is essentially unchanged or minimally clear. 6-12 months follow up chest CT is recommended. Narrative [facility] EX[facility] - 06/20/2023 9:41 AM EDT CAT SCAN OF CHEST NO CONTRAST TECHNIQUE: Multidetector CT of the chest was performed without intravenous contrast. Comparison: Chest CT on March 10, 2023 HISTORY: Lung nodule FINDINGS: Devices/Tubes/Lines: None. Lungs: Central airways are patent. No pulmonary consolidation. Pulmonary nodules/opacities as follows: -Right upper lobe 0.5 cm groundglass nodule (2:65), unchanged -Irregular shaped opacity associated with some central groundglass component in the anterior aspect of the right lower lobe (2:225) appears essentially unchanged or minimally clearing compared to the previous exam. -Pleural-based presumed focal atelectasis in the posteromedial aspect of the left lower lobe (2:221), unchanged. -No new or enlarging pulmonary nodules. Pleura: No pleural effusion or pneumothorax. Mediastinum: No thyroid nodules. Heart is normal in size. No pericardial effusion. No coronary artery calcifications. No thoracic aortic aneurysm. Scattered atherosclerotic calcifications. Lymph Nodes: No enlarged supraclavicular, axillary, mediastinal, or hilar lymph nodes. Upper Abdomen: No suspicious abnormality seen. Scattered vascular calcifications. Absence of intravenous contrast limits sensitivity for detecting solid organ findings. Chest Wall: No chest wall mass. Bones: No suspicious lytic or blastic lesions. Procedure Note Yumiko Diop MD - 06/20/2023 CAT SCAN OF CHEST NO CONTRAST TECHNIQUE: Multidetector CT of the chest was performed without intravenouscontrast. Comparison: Chest CT on March 10, 2023 HISTORY: Lung nodule FINDINGS: Devices/Tubes/Lines: None. Lungs: Central airways are patent. No pulmonary consolidation. Pulmonarynodules/opacities as follows: -Right upper lobe 0.5 cm groundglass nodule (2:65), unchanged -Irregular shaped opacity associated with some central groundglasscomponent in the anterior aspect of the right lower lobe (2:225) appears essentially unchanged orminimally clearing compared to the previous exam. -Pleural-based presumed focal atelectasis in the posteromedial aspect ofthe left lower lobe (2:221), unchanged. -No new or enlarging pulmonary nodules. Pleura: No pleural effusion or pneumothorax. Mediastinum: No thyroid nodules. Heart is normal in size. No pericardialeffusion. No coronary artery calcifications. No thoracic aortic aneurysm. Scatteredatherosclerotic calcifications. Lymph Nodes: No enlarged supraclavicular, axillary, mediastinal, or hilarlymph nodes. Upper Abdomen: No suspicious abnormality seen. Scattered vascularcalcifications. Absence of intravenous contrast limits sensitivity for detecting solid organfindings. Chest Wall: No chest wall mass. Bones: No suspicious lytic or blastic lesions. IMPRESSION IMPRESSION: Irregular shaped right lower lobe pulmonary nodule is essentiallyunchanged or minimally clear. 6-12 months follow up chest CT is recommended. Deanna Marie MD CT SCANS [facility] EXTER[facility] documented in this encounter Visit Diagnoses Diagnosis Lung nodule- Primary Solitary pulmonary nodule Lung nodule Solitary pulmonary nodule documented in this encounter Care Teams Traffic Expert Relationship Specialty Start Date End Date Deanna Marie MD [address] [place] [phone] PCP - General Internal Medicine 06/06/22 documented as of this encounter
--- OUTSIDE RECORDS SUMMARY | 2025-06-30 10:42 | XMS_ITS | Encounter Summary ---
Author Organization [facility] Address [address] [place] [address] Care Team Providers Care Trashman Name Role Phone Deanna Marie MD Primary Care Provider Encounter Details Date Type Department Care Team Description 09/07/2022 Pt. Non Urgent Medical Question Adult Medicine [address] [address] Deanna Marie MD [address] [place] [address] Social History Tobacco Use Types Packs/Day Years [...] suspected to have Coronavirus/COVID-19? No / Unsure 09/08/2022 9:37 AM EST documented as of this encounter Miscellaneous Notes * Telephone Encounter - Kathy Donovan - 09/08/2022 2:05 PM ESTFrom: Jennifer Manzo To: Veronica Marie Sent: 09/07/2022 1:57 PM EST Subject: Urgent care visit 09/07/22 thinks nerve related. documented in this encounter Plan of Treatment Not on file documented as of this encounter Visit Diagnoses Not on filedocumented in this encounter Care Teams Trashman Relationship Specialty Start Date End Date Deanna Marie MD [address] [place] [address] PCP - General Internal Medicine 06/06/22 documented as of this encounter
--- OUTSIDE RECORDS SUMMARY | 2025-06-30 10:42 | XMS_ITS | Encounter Summary ---
Author Organization [facility] Address [address] [place] [address] Care Team Providers Care Portrait Photographer Name Role Phone Deanna Marie MD Primary Care Provider [phone] Encounter Details Date Type Department Care Team Description 08/08/2024 Orders Only Adult Medicine [address] [address] Deanna Marie MD [address] [place] [address] Social History Tobacco Use Types Packs/Day Years Used Date Smoking Tobacco: Never Smokeless Tobacco: Never Alcohol Use Standard Drinks/Week Comments Yes 0 (1 standard drink = 0.6 oz pur e alcohol) rare Sex Assigned at Date Recorded Not on file Job Start Date Occupation Industry Not on file Not on file Not on file documented as of this encounter Plan of Treatment Not on file documented as of this encounter Visit Diagnoses Not on filedocumented in this encounter Care Teams Portrait Photographer Relationship Specialty Start Date End Date Deanna Marie MD [address] [place] [phone] PCP - General Internal Medicine 06/06/22 documented as of this encounter
--- OUTSIDE RECORDS SUMMARY | 2025-06-30 10:42 | XMS_ITS | Encounter Summary ---
Author Organization [facility] Address [address] [place] [address] Care Team Providers Care Senior Windows Systems Engineer Name Role Phone Becca Butler MD Primary Care Provider [facility] Primary Care Provider [phone] Fracisco Hilario Primary Care Provider [phone] Encounter Details Date Type Department Care Team Description 05/25/2012 [facility] Proxy Form Medical Records [address] [place] [address] Abstract, Provider Social History Tobacco Use Types Packs/Day Years Used Date Smoking Tobacco: Never Smokeless Tobacco: Never Alcohol Use Standard Drinks/Week Comments Yes 0 (1 standard drink = 0.6 oz pur e alcohol) less than once a month Sex Assigned at Date Recorded Not on file Job Start Date Occupation Industry Not on file Not on file Not on file documented as of this encounter Plan of Treatment Not on file documented as of this encounter Visit Diagnoses Not on filedocumented in this encounter Care Teams Senior Windows Systems Engineer Relationship Specialty Start Date End Date Becca Butler MD PCP - General 01/20/11 03/15/22 Deanna Marie MD [address] [place] [address] [phone] PCP - General Internal Medicine 06/06/22 Fracisco Hilario [address] [place] [address] [phone] PCP - General Internal Medicine 04/07/22 06/05/22 documented as of this encounter
--- OUTSIDE RECORDS SUMMARY | 2025-06-30 10:42 | XMS_ITS | Encounter Summary ---
Author Organization [facility] Address [address] [place] [address] Care Team Providers Care Distribution Accounting Clerk Name Role Phone Becca Butler MD Primary Care Provider [facility] center[facility] MD Primary Care Provider [phone] Fracisco Hilario Primary Care Provider [phone] Encounter Details Date Type Department Care Team Description 05/04/2017 [facility] Medical Records [address] [place] [address] Abstract, Provider Social History Tobacco Use Types [...] on filedocumented in this encounter Care Teams Distribution Accounting Clerk Relationship Specialty Start Date End Date Becca Butler MD PCP - General 01/20/11 03/15/22 Deanna Marie MD [address] [place] [address] [phone] PCP - General Internal Medicine 06/06/22 Fracisco Hilario [address] [place] [address] [phone] PCP - General Internal Medicine 04/07/22 06/05/22 documented as of this encounter
--- OUTSIDE RECORDS SUMMARY | 2025-06-30 10:42 | XMS_ITS | Encounter Summary ---
Author Organization [facility] Address [address] [place] [address] Care Team Providers Care Boot And Shoe Laborer Name Role Phone Deanna Marie MD Primary Care Provider [phone] Reason for Visit * Reason Onset Date Comments My Chart Appointment 12/15/2022 Encounter Details Date Type Department Care Team Description 12/15/2022 Telephone Adult Medicine [facility] [address] [place] [address] Lima Shin PA [address] [place] [address] [phone] My Chart Appointment Social History Tobacco Use Types Packs/Day Years [...] suspected to have Coronavirus/COVID-19? No / Unsure 12/15/2022 9:54 AM EST documented as of this encounter Miscellaneous Notes * Telephone Encounter - Clara Booth R.N. - 12/15/2022 8:49 AM EST I left a message for the patient to return my call. * Telephone Encounter - Randi Aragon - 12/15/2022 8:29 AM EST This patient just booked an appt via my chart for 12/16/22 with Lima. Reason for appt is Severecough and head congestion for 8 days . Please triage. documented in this encounter Plan of Treatment Not on file documented as of this encounter Visit Diagnoses Not on filedocumented in this encounter Care Teams Boot And Shoe Laborer Relationship Specialty Start Date End Date Deanna Marie MD [address] [place] [phone] PCP - General Internal Medicine 06/06/22 documented as of this encounter
--- OUTSIDE RECORDS SUMMARY | 2025-06-30 10:42 | XMS_ITS | Encounter Summary ---
Author Organization [facility] Address [address] [place] [address] Care Team Providers Care Transition Mgr Name Role Phone Deanna Marie MD Primary Care Provider [phone] Encounter Details Date Type Department Care Team Description 11/14/2023 Orders Only Adult Medicine [facility] [address] [place] [address] Dain Decker, PALin [address] [place] [phone] Lymphocyte disorder (Primary Dx) Social History Tobacco Use Types [...] documented as of this encounter Results * (ABNORMAL) CHG BLOOD COUNT COMPLETE AUTO&AUTO DIFRNTL WBC (02/23/2024 11:43 AM EDT) [facility] WHITE BLOOD COUNT 6.5 4.8 - 10.8 x10-3/uL 02/23/2024 2:39 PM EDT [facility] RED BLOOD COUNT 4.6 3.8 - 4.8 x10-6/uL 02/23/2024 2:39 PM EDT [facility] Hemoglobin 13.7 11.5 - 16.0 g/dL 02/23/2024 2:39 PM EDT [facility] Hematocrit 41.8 35 - 47 % 02/23/2024 2:39 PM EDT [facility] MEAN CORPUSCULAR VOLUME 90.5 79 - 98 fL 02/23/2024 2:39 PM EDT [facility] MEAN CORPUSCULAR HEMOGLOBIN 29.7 27 - 32 pg 02/23/2024 2:39 PM EDT [facility] MEAN CORPUSCULAR HGB CONC 32.8 32 - 37 g/dL 02/23/2024 2:39 PM EDT [facility] RED CELL DISTRIBUTION WIDTH 12.5 11 - 15 % 02/23/2024 2:39 PM EDT [facility] PLT COUNT 234 130 - 400 x10-3/uL 02/23/2024 2:39 PM EDT [facility] MEAN PLATELET VOLUME 12.2(H) 7 - 11 fL 02/23/2024 2:39 PM EDT [facility] NRBC % AUTO 0.0 <1 % 02/23/2024 2:39 PM EDT [facility] NEUTROPHILS % 59.0 % 02/23/2024 2:39 PM EDT [facility] LYMPH % 30.2 % 02/23/2024 2:39 PM EDT [facility] MONO % 7.1 % 02/23/2024 2:39 PM EDT [facility] EOS % 2.9 % 02/23/2024 2:39 PM EDT [facility] BASO % 0.6 % 02/23/2024 2:39 PM EDT [facility] IMMATURE GRANULOCYTES % 0.2 % 02/23/2024 2:39 PM EDT [facility] NRBC # AUTO 0.00 <0.1 x10-3/uL 02/23/2024 2:39 PM EDT [facility] NE[facility] # 3.83 1.5 - 7.0 x10-3/uL 02/23/2024 2:39 PM EDT [facility] L[facility]MPH # 1.96 1 - 5.0 x10-3/uL 02/23/2024 2:39 PM EDT 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
--- OUTSIDE RECORDS SUMMARY | 2025-06-30 10:42 | XMS_ITS | Encounter Summary ---
Author Organization [facility] Address [address] [place] [address] Care Team Providers Care Commercial Construction Estimator Name Role Phone Deanna Marie MD Primary Care Provider [phone] Reason for Referral * EXTERNAL (Routine) - Authorized/Booked Specialty Diagnoses / Procedures Referred By Alonzo stiles Referred To Contact PAIN MANAGEMENT / Pain Management Procedures REFERRAL TO PAIN MANAGEMENT Deanna Marie MD [address] [place] [address] External Pain Man Referral ID Status Reason Start Date Expiration Date V isits Requested Visits Authorized [id number] Authorized/B ooked 09/20/2022 12/27/2022 1 1 Encounter Details Date Type Department Care Team Description 09/12/2022 Pt. Non Urgent Medical Question Adult Medicine [address] [address] Deanna Marie MD [address] [place] [address] Social History Tobacco Use Types Packs/Day Years [...] * Telephone Encounter - Kathy Donovan - 09/16/2022 8:50 AM ESTFrom: Jennifer Manzo To: Veronica Marie Sent: 09/12/2022 11:39 AM EST Subject: Nerve pain experienced Hi Dr. Marie, Thank you for seeing me in the office on September 08. I am concerned that I am heavily reliant on ibuprofen and pain meds in my current condition. I would like a referral to [facility] pain neurology center in [place]. They said the process is for you to send a referral by fax for me to get s tarted. The fax number is [phone]. I have spoken with a number of friends and relatives who all say that nerve pain in the shoulder and elbow could be connected to my past injuriesin the elbow, the shoulder and my back, so I would like to actively pursue this specialized treatment. Thank you for your consideration, Jeninfer documented in this encounter Plan of Treatment Not on file documented as of this encounter Visit Diagnoses Not on filedocumented in this encounter Care Teams Commercial Construction Estimator Relationship Specialty Start Date End Date Deanna Marie MD [address] [place] [phone] PCP - General Internal Medicine 06/06/22 documented as of this encounter
--- OUTSIDE RECORDS SUMMARY | 2025-06-30 10:42 | XMS_ITS | Encounter Summary ---
Author Organization [facility] Address [address] [place] [address] Care Team Providers Care Internet Designer Name Role Phone Becca Butler MD Primary Care Provider Deanna Salas MD Primary Care Provider [phone] Fracisco Hilario Primary Care Provider [phone] Reason for Visit * Reason Onset Date Comments immunizations 04/18/2013 Encounter Details Date Type Department Care Team Description 04/18/2013 Telephone Adult [address] [phone] Becca Butler MD immunizations Social History Tobacco Use Types Packs/Day Years [...] encounter Miscellaneous Notes * Telephone Encounter - Margarita Hackett - 04/19/2013 8:47 AM EDT Left message for the pt to call back to book * Telephone Encounter - Analisa Lopez L.P.N. - 04/19/2013 8:45 AM EDT Please schedule pt on chronic nurse schedule * Telephone Encounter - Becca Butler MD - 04/18/2013 7:03 PM EDT Order placed. * Telephone Encounter - Clementine Mendoza M.A. - 04/18/2013 5:20 PM EDT Please order * Telephone Encounter - Ann Martínez - 04/18/2013 4:15 PM EDT Patient needs a MMR for graduate school, please order and book documented in this encounter Plan of Treatment Not on file documented as of this encounter Visit Diagnoses Diagnosis Need for prophylactic vaccination with [id number] (MMR) vaccine- Primary documented in this encounter Care Teams Internet Designer Relationship Specialty Start Date End Date Becca Butler MD PCP - General 01/20/11 03/15/22 Deanna Marie MD [address] [place] [phone] PCP - General Internal Medicine 06/06/22 Fracisco Hilario [address] [place] [phone] PCP - General Internal Medicine 04/07/22 06/05/22 documented as of this encounter
--- OUTSIDE RECORDS SUMMARY | 2025-06-30 10:42 | XMS_ITS | Encounter Summary ---
Author Organization [facility] Address [address] [place] [address] Care Team Providers Care Composing Room Machinist Name Role Phone Becca Butler MD Primary Care Provider Deanna Salas MD Primary Care Provider [phone] Fracisco Hilario Primary Care Provider [phone] Encounter Details Date Type Department Care Team Description 02/23/2016 Silk Printer Report Medical Records [address] [place] [address] Shelly Lyn [address] [place] [address] [phone] Social History Tobacco Use Types Packs/Day Years [...] on filedocumented in this encounter Care Teams Composing Room Machinist Relationship Specialty Start Date End Date Becca Butler MD PCP - General 01/20/11 03/15/22 Deanna Marie MD [address] [place], [place] [phone] PCP - General Internal Medicine 06/06/22 Fracisco Hilario [address] [place] [address] PCP - General Internal Medicine 04/07/22 06/05/22 documented as of this encounter
--- OUTSIDE RECORDS SUMMARY | 2025-06-30 10:42 | XMS_ITS | Clinical Summary ---
Author Organization [facility] [address] [place] [address] [place] [phone] Phone Care Team Providers Care Patch Sander Name Role Phone Deanna Marie MD Primary Care Provider [phone] Allergies Active Allergy Reactions Criticality Noted Date Comments Grass Pollen 06/27/2025 trees Mold 05/21/2012 Nitrofurantoin 03/08/2007 migraine jaeger Other 05/21/2012 Penicillin V Potassium Other 12/12/2005 Dizzy, edema Sulfa (Sulfonamide Antibiotics) 11/24 Venom-Wasp 06/27/2025 Medications NON FORMULARY Once a month Act rubén aspirin (ASPIR-81 ORAL) Take 81 mg by mouth every 7 (seven) days. Active CRANBERRY ORAL Take by mouth. Active Fe gluconate/vit C/folic acid (IRON-C ORAL) Take by mouth. A ctive FLAXSEED ORAL Take by mouth. 3-4 times a week Active ibuprofen (ADVIL,MOTRIN) 600 mg tablet Take 1 tablet (600 mg total) by mouth every 6 (six) hours if needed (Pain). 4 Active MULTIVITAMIN ORAL Take by mouth. Activ e acetaminophen (TYLENOL) 500 mg tablet Take 1 tablet (500 mg total) by mouth every 6 (six) hours if needed. Active albuterol HFA (PROAIR HFA ; PROVENTIL HFA ; VENTOLIN HFA) 90 mcg/actuation inhaler Inhale 2 puffs by mouth 4 (four) times a day if needed (Cough or Shortness of Breath). 3 Active cholecalciferol (VITAMIN D-3) 25 mcg (1,000 unit) capsule Take by mouth. 3-4 x per week Active calcium carbonate (OS-EUGENE) 1250 mg (500 mg elemental calcium) chewable tablet Chew 1 tablet (1,250 mg total). Active EPINEPHrine (EPIPEN) 0.3 mg/0.3 mL injection Inject 0.3 mL (0.3 mg total) into the thigh if needed for anaphylaxis. Call 911 after use. 1 each 5 06/27/20 26 Active Active Problems Problem Noted Date Diagnosed Date Lung nodule 09/09/2022 Assessment & Plan (06/27/2025 11:55 AM EDT): Lung nodule- last CT in July 2024-- stable since 2021, repeat in 2 years in 2025. Sprain of metacarpophalangea l (MCP) joint of left little finger 05/15/2019 Varicose veins of both lower extremities 019 Gastroesophageal reflux disease 03/26/2018 Displacement of lumbar inter vertebral disc without myelopathy 05/23/2008 Allergic rhinitis 03/08/2007 Overview (10/21/2024): Some sob/dyspnea in spring 2011; PFTs normal. Encounters Date Type Department Care Team Description 06/27/2025 9:30 AM EDT Office Visit Adult Medicine [address] [address] Deanna Marie MD PE (physical exam), annual (Primary Dx); Lung nodule; Prediabetes; Overweight (BMI 25.0-29.9) from Last 3 Months Immunizations Name Administration Dates Next Due DTP 10/23/1970,,12/07/1962,1961,1961,1961,1961 Hepatitis A Adult (Havrix; V aqta) 19yo and older 09/03/2008,01/07/2008 Hepatitis B (Uxtgjuv-M-Xzqol , Recombivax HB-Adult) 19yo and older 07/17/2013,02/13/2013,01/16/2013 IPV Inactivated polio (Ipol) 6wks and older 01/11/1962,1961,1961 Influenza trivalent, 0.5mL, preservative free (Fluarix; FluLaval; Fluzone) ages 6mo and older (Afluria) 3 years and older 09/28/2009,11/18/1999,08/04/1998 Influenza, Unspecified 08/26/2019 MMR, measles mumps and rubel la Live (Priorix; M-M-R II) 12mo and older 05/29/2013,01/16/2013 Measles 04/03/1979 OPV 04/22/1979 Pneumococcal conjugate 20 va lent (Prevnar 20, PCV 20) 2mo and older 02/23/2024 Rubella 10/23/1969 Smallpox 02/22/1962 Td Tetanus diptheria (Tdvax) 7yo and older 07/29/1975 Td, Unspecified 09/22/2004 Tdap Tetanus diptheria acell ular pertussis (Boostrix; Adacel) 7yo and older 05/27/2024,01/09/2013 Zoster recombinant (Shingrix ) 19yo and older 09/27/2024,07/26/2024 Surgical History Surgery Date Site/Laterality Comments COLONOSCOPY 05/31/2011 PROCEDURE: HISTORICAL COLONOSCOPY; COMMENT: normal; repeat in ten years COLONOSCOPY 04/07/2022 PROCEDURE: HISTORICAL COLONOSCOPY; COMMENT: Normal repeat 10 years Medical History Medical History Date Comments Lumbago 05/23/2008 DX:Lumbago Actinic keratosis, hx of DX:Acti bird keratosis, hx of Family History Medical History Relation Name Comments Heart failure Father in 80s Other: prostate cancer Father diagn osed at 86, at 88 Breast cancer Mother Diabetes Mother's side great aunts an d uncles Breast cancer Other m.great aunt Colon cancer Neg Hx Ovarian cancer Neg Hx Relation Name Status Comments Daughter 1 Alive A+W Daughter 2 Alive A+W Father CHF Maternal Grandfather Maternal Grandmother Mother Mother's side Other m.great aunt Paternal Grandfather Paternal Grandmother Sister 1 Alive A+W Sister 2 Alive A+W Sister 3 Alive A+W, bipolar Son 1 Alive A+W Son 2 Alive A+W Social History Tobacco Use Types Packs/Day Years [...] your loved ones. For example, child and adolescent therapist or elderly care for an older adult? [...] on file Sexual Orientation Not on file Obstetrics History Para Term AB IAB SAB Ectopic Multiple Livin g Live Births 4 4 4 4 Date Outcome GA Total Labor Labor/2nd/3rd Weight Sex Type Anes PTL Lynda A1 A5 Name Clin Term Term Term Term Last Filed Vital Signs Vital Sign Reading [...] Mass Index 27.62 06/27/2025 9:42 AM EDT Plan of Treatment Upcoming Encounters Date Type Department Care Team (Late st Contact Info) Description 11/03/2025 7:30 AM EST Appointment Radiology Department [address] [address] Health Maintenance Due Date Last Done Comments COVID-19 Vaccine (3 - Moderna risk series) 02/17/2021 01/20/2021, 12/23/2020 HIV Screening 09/25/2022 Influenza Vaccine (#1) 2025 0, 08/26/2019, 09/28/2009, Additional history exists Breast Cancer Screening 11/01/2025 11/01/19 25, 04/20/2023, 09/02/2021, Additional history exists Social Influencers of Health Screening 06/26/2026 06/26/2025 Cervical Cancer Screening: HPV 12/08/2026 11/23/2021 Cholesterol Screening (Lipid Panel) 07/23/2029 07/23/2024, 07/23/2024 Colorectal Cancer Screening: Colonoscopy 04/07/2032 04/07/2022, 04/07/2022 DTaP,Tdap,and Td Vaccines (10 - Td or Tdap) 05/27/2034 05/27/2024, 01/09/2013, 09/22/2004, Additional history exists RSV Immunization Adult Patients (1 - 1-dose 75+ series) 01/03/2036 IPV Vaccines Completed 04/22/1979, 12/22, 1961, Additional history exists Hepatitis A Vaccines Aged Out 09/03/2008, 01/07/20 08 No longer eligible based on patient's age to complete this topic MMR Vaccines Aged Out 05/29/2013, 01/16/2013 No lo nger eligible based on patient's age to complete this topic Hepatitis B Vaccines Completed 07/17/2013, 02/13/2013, 01/16/2013 Hepatitis C Screening Completed 12/13/2014 Pneumococcal Vaccine: 50+ Years Completed 02/23/2024 Zoster Vaccines Completed 09/27/2024, 07/26/2024 Depression Screening Completed 06/26/2025 HIB Vaccines Aged Out No longer eligi ble based on patient's age to complete this topic HPV Vaccines Aged Out No longer eligi ble based on patient's age to complete this topic Meningococcal ACWY Vaccine Aged Out N o longer eligible based on patient's age to complete this topic Meningococcal B Vaccine Aged Out No l onger eligible based on patient's age to complete this topic RSV Immunization Patients Under 20 months Aged Out No longer eligible based on patient's age to complete this topic Varicella Vaccines Aged Out No longer eligible based on patient's age to complete this topic Procedures Procedure Name Priority Date/Time Associated Diagnosis Comments MG MAMMO DIGITAL SCREENING W AMADOR BILAT Routine 11/01/2024 4:19 PM EST Encounter for screening mammogram for breast cancer LIPID PANEL Routine 07/23/2024 COLONOSCOPY Routine 04/07/2022 HPV Routine 11/23/2021 HEPATITIS C SCREENING Routine 12/13/2014 from Last 3 Months or Most Recently Relevant to Health Maintenance Results * MG Mammo Digital Screening w Amador bilat (11/01/2024 4:19 PM EST) Anatomical Region Laterality Modality Breast Bilateral Mammography 11/04/2024 6:15 PM EST Impressions 11/04/2024 6:20 PM EST No mammographic evidence of malignancy. BI-RADS CATEGORY: 1 - NEGATIVE RECOMMENDATION: Screening bilateral mammogram is recommended in 1 year. Mammo Location: [facility], [address] [place] [address], [facility], . -------- FINAL REPORT -------- Dictated By: Nicolasa Sheth Dictated Date: 11/04/2024 18:15 ET Assigned Physician: Nicolasa Sheth Reviewed and Electronically Signed By: Nicolasa Sheth Signed Date: 11/04/2024 18:20 ET Workstation ID: [id number] Transcribed By: Self Edit Transcribed Date: 11/04/2024 18:15 ET Narrative 11/04/2024 6:20 PM EST Bilateral screening mammogram. CLINICAL: 64 years old, Female, routine annual exam. COMPARISON: Prior examinations, latest from 04/20/2023. TECHNIQUE: Bilateral MLO and CC views were obtained digitally with 3-D mammogram (digital breast tomosynthesis). Computer-aided detection was utilized in evaluation of this exam (CAD). FINDINGS: There is no evidence of suspicious mass or architectural distortion. No worrisome calcifications are evident. There has been no significant change from prior exam(s). BREAST DENSITY: B - There are scattered areas of fibroglandular density. Procedure Note Nicolasa Sheth MD - 11/04/2024 Bilateral screening mammogram. CLINICAL: 64 years old, Female, routine annual exam. COMPARISON: Prior examinations, latest from 04/20/2023. TECHNIQUE: Bilateral MLO and CC views were obtained digitally with 3-Dmammogram (digital breast tomosynthesis). Computer-aided detection wasutilized in evaluation of this exam (CAD). FINDINGS: There is no evidence of suspicious mass or architectural distortion. Noworrisome calcifications are evident. There has been no significantchange from prior exam(s). BREAST DENSITY: B - There are scattered areas of fibroglandular density. IMPRESSION: No mammographic evidence of malignancy. BI-RADS CATEGORY: 1 - NEGATIVE RECOMMENDATION: Screening bilateral mammogram is recommended in 1 year. Mammo Location: [facility], [address] [place] [address], [id number], . -------- FINAL REPORT -------- Dictated By: Nicolasa Sheht Dictated Date: 11/04/2024 18:15 ET Assigned Physician: Nicolasa Sheth Reviewed and Electronically Signed By: Nicolasa Sheth Signed Date: 11/04/2024 18:20 ET Workstation ID: [id number] Transcribed By: Self Edit Transcribed Date: 11/04/2024 18:15 ET Deanna Marie MD IMG BI PROCEDURES Final Result * (ABNORMAL) Lipid panel (07/23/2024) Pathologist [facility] LDL/HDL Ratio 3 0 - 4 Triglycerides 58 0 - 150 mg/dL Cholesterol 220(A) 0 - 200 mg/dL HDL 76 >=40 mg/dL LDL Cholesterol 133(A) 0 - 100 mg/dL Blood Venous blood specimen / Unknown Historical Provider LAB BLOOD ORDERABLES Carolyn l Result * Colonoscopy (04/07/2022) Pathologist [facility] Colonoscopy No interpretation , abstracted Anatomical Region Laterality Modality Other Historical Provider HEALTH MAINTENANCE Final Result * Cervical Cancer Screening: HPV (11/23/2021) Pathologist [facility] Cervical Cancer Screening: HPV Negative, abstracted Historical Provider HEALTH MAINTENANCE Final Result * Hepatitis C Screening (12/13/2014) [facility] Hepatitis C Screening Abstracted Historical Provider HEALTH MAINTENANCE Final Result from Last 3 Months or Most Recently Relevant to Health Maintenance Insurance [facility] Care Teams Patch Sander Relationship Specialty Start Date End Date Deanna Marie MD [address] [place] [phone] PCP - General Internal Medicine 06/06/22
--- OUTSIDE RECORDS SUMMARY | 2025-06-30 10:42 | XMS_ITS | Encounter Summary ---
Author Organization [facility] Address [address] [place] [address] Care Team Providers Care Support Staff Name Role Phone Becca Butler MD Primary Care Provider Deanna Salas MD Primary Care Provider [phone] Fracisco Hilario Primary Care Provider [phone] Encounter Details Date Type Department Care Team Description 03/28/2018 Orders Only Adult Medicine [address] [address] Randi Wilson PA-C [address] [place] [phone] Fatigue, unspecified type; Postprandial bloating Social History Tobacco Use Types Packs/Day Years [...] on file documented as of this encounter Procedures Procedure Name Priority Date/Time Associated Diagnosis Comments CHG RADIOLOGIC EXAM ESOPHAGUS SINGLE CONTRAST STUDY Routine 03/22/2018 Fatigue, unspecified type Postprandial bloating documented in this encounter Results * BARIUM SWALLOW (03/22/2018) Randi Wilson PA-C RADIOLOGY documented in this encounter Visit Diagnoses Diagnosis Fatigue, unspecified type Postprandial bloating Flatulence, eructation, and gas pain documented in this encounter Care Teams Support Staff Relationship Specialty Start Date End Date Becca Butler MD PCP - General 01/20/11 03/15/22 Deanna Marie MD [address] [place] [address] PCP - General Internal Medicine 06/06/22 Fracisco Hilario [address] [place] [phone] PCP - General Internal Medicine 04/07/22 06/05/22 documented as of this encounter
--- OUTSIDE RECORDS SUMMARY | 2025-06-30 10:42 | XMS_ITS | Encounter Summary ---
Author Organization [facility] Address [address] [place] [address] Care Team Providers Care Correctional Counselor Name Role Phone Deanna Marie MD Primary Care Provider [phone] Encounter Details Date Type Department Care Team Description 05/27/2024 Orders Only Radiology - [address] [address] Radiology, Authorizing Social History Tobacco Use Types Packs/Day Years [...] on filedocumented in this encounter Care Teams Correctional Counselor Relationship Specialty Start Date End Date Deanna Marie MD [address] [place] [phone] PCP - General Internal Medicine 06/06/22 documented as of this encounter
--- OUTSIDE RECORDS SUMMARY | 2025-06-30 10:42 | XMS_ITS | Encounter Summary ---
Author Organization [facility] Address [address] [place] [address] Care Team Providers Care Ruling Machine Set Up Operator Name Role Phone Deanna Marie MD Primary Care Provider [phone] Reason for Referral * EXTERNAL (Routine) - Authorized/Booked Specialty Diagnoses / Procedures Referred By Contact Referred To Contact Allergy & Immunology / Allergy Procedures REFERRAL TO ALLERGY Deanna Marei MD [address] [place] [address] Enrique Payton [address] [place] [address] Referral ID Status Reason Start Date Expiration Date V isits Requested Visits Authorized [id number] Authorized/B ooked 12/04/2023 12/03/2024 1 1 Encounter Details Date Type Department Care Team Description 12/04/2023 Pt. Non Urgent Medical Question Adult Medicine [address] [address] Deanna Marie MD [address] [place] [phone] Social History Tobacco Use Types Packs/Day Years [...] on filedocumented in this encounter Care Teams Ruling Machine Set Up Operator Relationship Specialty Start Date End Date Deanna Marie MD [address] [place] [address] PCP - General Internal Medicine 06/06/22 documented as of this encounter
--- OUTSIDE RECORDS SUMMARY | 2025-06-30 10:42 | XMS_ITS | Encounter Summary ---
Author Organization [facility] Address [address] [place] [address] Care Team Providers Care Environmental Protection Economist Name Role Phone Becca Butler MD Primary Care Provider [facility] MD Primary Care Provider [phone] Fracisco Hilario Primary Care Provider [phone] Encounter Details Date Type Department Care Team Description 05/24/2012 Old Medical Records Medical Records [address] [place] [address] Abstract, Provider Social History Tobacco Use Types [...] on filedocumented in this encounter Care Teams Environmental Protection Economist Relationship Specialty Start Date End Date Becca Butler MD PCP - General 01/20/11 03/15/22 Deanna Marie MD [address] [place] [phone] PCP - General Internal Medicine 06/06/22 Fracisco Hilario [address] [place] [phone] PCP - General Internal Medicine 04/07/22 06/05/22 documented as of this encounter
--- OUTSIDE RECORDS SUMMARY | 2025-06-30 10:42 | XMS_ITS | Encounter Summary ---
Author Organization [facility] Address [address] [place] [address] Care Team Providers Care Cue Selector Name Role Phone Deanna Marie MD Primary Care Provider [phone] Encounter Details Date Type Department Care Team Description 06/23/2022 [facility] Medical Records [address] [place] [address] Abstract, Provider Social History Tobacco Use Types [...] suspected to have Coronavirus/COVID-19? No / Unsure 06/21/2022 11:05 AM EDT documented as of this encounter Plan of Treatment Not on file documented as of this encounter Visit Diagnoses Not on filedocumented in this encounter Care Teams Cue Selector Relationship Specialty Start Date End Date Deanna Marie MD [address] [place] [address] PCP - General Internal Medicine 06/06/22 documented as of this encounter
--- OUTSIDE RECORDS SUMMARY | 2025-06-30 10:42 | XMS_ITS | Encounter Summary ---
Author Organization [facility] Address [address] [place] [address] Care Team Providers Care Size Tester Name Role Phone Becca Butler MD Primary Care Provider Jillianwi Deanna Rubalcava MD Primary Care Provider [phone] Fracisco Hilario Primary Care Provider [phone] Encounter Details Date Type Department Care Team Description 05/10/2019 Orders Only Medical Records [address] [place] [id number] Toni Harry MD Social History Tobacco Use Types Packs/Day Years [...] Procedure Name Priority Date/Time Associated Diagnosis Comments OUTSIDE VASCULAR STUDY Routine 05/09/2019 documented in this encounter Results * OUTSIDE VASCULAR STUDY (05/09/2019) Toni Harry MD CARDIOLOGY documented in this encounter Visit Diagnoses Not on filedocumented in this encounter Care Teams Size Tester Relationship Specialty Start Date End Date Becca Butler MD PCP - General 01/20/11 03/15/22 Deanna Marie MD [address] [place] [phone] PCP - General Internal Medicine 06/06/22 Fracisco Hilario [address] [place] [address] PCP - General Internal Medicine 04/07/22 06/05/22 documented as of this encounter
--- OUTSIDE RECORDS SUMMARY | 2025-06-30 10:42 | XMS_ITS | Encounter Summary ---
Author Organization [facility] Address [address] [place] [address] Care Team Providers Care Passenger Relations Representative Name Role Phone Becca Butler MD Primary Care Provider Yasemin Kulkarni MD Primary Care Provider Unavailable Iván Rodrigues Primary Care Provider [phone] Deanna Marie MD Primary Care Provider [phone] Fracisco Hilario Primary Care Provider [phone] Reason for Visit * Reason Comments other Encounter Details Date Type Department Care Team Description 12/17/2001 Telephone Adult Medicine [facility] [address] [place] [phone] Apolinar Ruiz [address] [place] [phone] other Social History Tobacco Use Types Packs/Day Years Used Date Smoking Tobacco: Never Assessed Sex Assigned at Date Recorded Not on file Job Start Date Occupation Industry Not on file Not on file Not on file documented as of this encounter Miscellaneous Notes * Telephone Encounter - 12/17/2001 4:15 PM ABBYno custodian supervisor there to read today, call to Dr Jordan- [facility] # [phone] * Telephone Encounter - 12/17/2001 4:09 PM ESTnote from cardiology- [facility] not read yet * Telephone Encounter - 12/17/2001 4:00 PM ESTMd does not have report-cardiology called to fax information to us * Telephone Encounter - 12/17/2001 2:54 PM Javier jordan's office calling. pt has appointment tomorrow needs to know if pt has to be pre medicated please fax to [phone] * Telephone Encounter - 12/17/2001 1:32 PM ESTno echocardiogram in chart- * Telephone Encounter - 12/17/2001 11:35 AM ESTchart req'd * Telephone Encounter - 12/17/2001 11:24 AM ESTCALL RECEIVED. Contact: SELF [phone] PT IS CALLING TO SPEAK TO DR RUIZ ABOUT THE RESULT FROM HER ECHOCARDIOGRAM TO SEE IF SHE NEEDS TO B E PREMEDICATION FOR HER DENTIST APT. SHE HAS DENTIST APT ON 12/18/[address] DIANE JORDAN [phone] SHE WON'T SEE PT UNLESS SHE HAS INFORMATION PLEASE CALL PT AT ABOVE NUMBER documented in this encounter Plan of Treatment Not on file documented as of this encounter Visit Diagnoses Not on filedocumented in this encounter Care Teams Passenger Relations Representative Relationship Specialty Start Date End Date Becca Butler MD PCP - General 01/20/11 03/15/22 Farhat-Yasemin Pendleton MD PCP - General 06/23/0601/19 Iván Rodrigues [address] [place] [address] PCP - General 02/14/1998 06/22/06 Deanna Marie MD [address] [place] [address] PCP - General Internal Medicine 06/06/22 Fracisco Hilario [address] [place] [address] PCP - General Internal Medicine 04/07/22 06/05/22 documented as of this encounter
--- OUTSIDE RECORDS SUMMARY | 2025-06-30 10:42 | XMS_ITS | Encounter Summary ---
Author Organization [facility] Address [address] [place] [address] Care Team Providers Care Truck Manager Name Role Phone Becca Butler MD Primary Care Provider [facility]De[facility] Smith MD Primary Care Provider [phone] Fracisco Hilario Primary Care Provider [phone] Encounter Details Date Type Department Care Team Description 05/24/2019 Release of Information Medical Records [address] [place] [phone] Abstract, Provider Social History Tobacco Use Types [...] on filedocumented in this encounter Care Teams Truck Manager Relationship Specialty Start Date End Date Becca Butler MD PCP - General 01/20/11 03/15/22 Deanna Marie MD [address] [place] [phone] PCP - General Internal Medicine 06/06/22 Fracisco Hilario [address] [place] [address] [phone] PCP - General Internal Medicine 04/07/22 06/05/22 documented as of this encounter
--- OUTSIDE RECORDS SUMMARY | 2025-06-30 10:42 | XMS_ITS | Encounter Summary ---
Author Organization [facility] Address [address] [place] [address] Care Team Providers Care Day Porter Name Role Phone Deanna Marie MD Primary Care Provider [phone] Reason for Visit * Reason Onset Date Comments Provider Call Back 09/26/2022 Encounter Details Date Type Department Care Team Description 09/26/2022 Telephone Adult Medicine [address] [address] Deanna Marie MD [address] [place] [phone] Provider Call Back Social History Tobacco Use Types Packs/Day Years [...] suspected to have Coronavirus/COVID-19? No / Unsure 09/20/2022 11:18 AM EST documented as of this encounter Miscellaneous Notes * Telephone Encounter - Dorene Ta L.P.N. - 09/27/2022 9:02 AM EST called and informed * Telephone Encounter - Dorene Ta L.P.N. - 09/26/2022 4:07 PM EST Message left for patient to return my call. * Telephone Encounter - Dain Decker PA-C - 09/26/2022 3:58 PM EST I would recommend reevaluation if she thinks there is an infection. Based on my examination, I do not think that this is indicated. * Telephone Encounter - Dorene Ta L.P.N. - 09/26/2022 2:30 PM EST Dain, I spoke with her and she says the pain came back severe and in the same place. She does knowshe has further labs due next week but she is very worried and was wondering about an antibiotic and whether it could be started... Thank you, Bev * Telephone Encounter - Radha Simmons - 09/26/2022 1:08 PM EST Caller requesting call back from provider:Dain Decker Is the caller the patient? YES If caller is not the patient, what is the callers name? N/A Callers relationship to patient? N/A If person calling is not the patient themselves, is there a verbal release in FYI or permanent comments for this person: NO Reason for call back: Patient wants to speak with dain metzing her lyme's disease lab work Caller offered to speak with the nurse for assistance: YES Response: Patient unwilling to offer reason for requesting provider to call them documented in this encounter Plan of Treatment Not on file documented as of this encounter Visit Diagnoses Not on filedocumented in this encounter Care Teams Day Porter Relationship Specialty Start Date End Date Deanna Marie MD [address] [place] [address] PCP - General Internal Medicine 06/06/22 documented as of this encounter
--- OUTSIDE RECORDS SUMMARY | 2025-06-30 10:42 | XMS_ITS | Encounter Summary ---
Author Organization [facility] Address [address] [place] [address] Care Team Providers Care Cloth Handler Name Role Phone Becca Butler MD Primary Care Provider Deanna Salas MD Primary Care Provider [phone] Fracisco Hilario Primary Care Provider [phone] Encounter Details Date Type Department Care Team Description 04/29/2019 Abstract Medical Records [address] [place] [id number] Abstract, Provider Social History Tobacco Use Types [...] on filedocumented in this encounter Care Teams Cloth Handler Relationship Specialty Start Date End Date Becca Butler MD PCP - General 01/20/11 03/15/22 Deanna Marie MD [address] [place] [address] [id number] PCP - General Internal Medicine 06/06/22 Fracisco Hilario [address] [place] [address] [id number] PCP - General Internal Medicine 04/07/22 06/05/22 documented as of this encounter
--- OUTSIDE RECORDS SUMMARY | 2025-06-30 10:42 | XMS_ITS | Encounter Summary ---
Author Organization [facility] Address [address] [place] [address] Care Team Providers Care Lithographed Plate Inspector Name Role Phone Becca Butler MD Primary Care Provider Unava ilYasemin Blanc MD Primary Care Provider Unavailable Iván Rodrigues Primary Care Provider [phone] Deanna Marie MD Primary Care Provider [phone] Fracisco Hilario Primary Care Provider [phone] Encounter Details Date Type Department Care Team Description 11/24/2000 Telephone Medical [address] [place], [place] [phone] Apolinar Ruiz [address] [place], [place] [id number] Social History Tobacco Use Types Packs/Day Years Used Date Smoking Tobacco: Never Assessed Sex Assigned at Date Recorded Not on file Job Start Date Occupation Industry Not on file Not on file Not on file documented as of this encounter Plan of Treatment Not on file documented as of this encounter Visit Diagnoses Not on filedocumented in this encounter Care Teams Lithographed Plate Inspector Relationship Specialty Start Date End Date Becca Butler MD PCP - General 01/20/11 03/15/22 Yasemin Ahmadi MD PCP - General 06/23/0601/19 Iván Rodrigues [address] [place] [address] PCP - General 02/14/1998 06/22/06 Deanna Marie MD [address] [place] [address] PCP - General Internal Medicine 06/06/22 Fracisco Hilario [address] [place] [id number] PCP - General Internal Medicine 04/07/22 06/05/22 documented as of this encounter
--- OUTSIDE RECORDS SUMMARY | 2025-06-30 10:42 | XMS_ITS | Encounter Summary ---
Author Organization [facility] Address [address] [place] [address] Care Team Providers Care Manager Chemistry Name Role Phone Becca Butler MD Primary Care Provider [facility] MD Primary Care Provider [phone] Fracisco Hilario Primary Care Provider [phone] Encounter Details Date Type Department Care Team Description 12/18/2012 Transfer Records Medical Records [address] [place] [id number] Abstract, Provider Social History Tobacco Use Types [...] on filedocumented in this encounter Care Teams Manager Chemistry Relationship Specialty Start Date End Date Becca Butler MD PCP - General 01/20/11 03/15/22 Deanna Marie MD [address] [place] [address] [phone] PCP - General Internal Medicine 06/06/22 Fracisco Hilario [address] [place] [address] [phone] PCP - General Internal Medicine 04/07/22 06/05/22 documented as of this encounter
--- OUTSIDE RECORDS SUMMARY | 2025-06-30 10:42 | XMS_ITS | Encounter Summary ---
Author Organization [facility] Address [address] [place] [address] Care Team Providers Care Register Clerk Name Role Phone Deanna Marie MD Primary Care Provider [phone] Encounter Details Date Type Department Care Team Description 11/01/2023 Telephone Adult Medicine [address] [address] Deanna Marie MD [address] [place] [phone] Social History Tobacco Use Types Packs/Day Years [...] Miscellaneous Notes * Telephone Encounter - Kathy Patterson L.P.N. - 11/01/2023 1:57 PM EST Spoke with pt she states she thought the apt she made was for today not January She states she came into the office but was turned away She states she spoke with a nurse and an apt was booked for tomorrow Pt is very sob when talking sounds winded I did tell pt she should be seen today in an UC she declined states she will wait for apt tomorrow Again I told her I did not think she should wait she sounded very sob Again she declined going to uc or er encouraged to be seen today * Telephone Encounter - Rebecca Lopez - 11/01/2023 1:49 PM EST Patient returning call * Telephone Encounter - Marietta Roberts R.N. - 11/01/2023 12:26 PM EST [phone] (home) Called number listed , A/M stated last name of pt. Left message to call office regarding her cold symptoms . [phone] * Telephone Encounter - Baldev Angeles R.N - 11/01/2023 12:25 PM EST Appointment For: Jennifer Manzo ([id number]) Visit Type: ESTABLISHED () ?? 01/31/2024 9:45 AM 15 mins. I MD [facility] ?? Patient Comments: Chest cough and cold; repeated respiratory illness. documented in this encounter Plan of Treatment Not on file documented as of this encounter Visit Diagnoses Not on filedocumented in this encounter Care Teams Register Clerk Relationship Specialty Start Date End Date Deanna Marie MD [address] [place] [id number] PCP - General Internal Medicine 06/06/22 documented as of this encounter
== END 2025-06-30 09:31 | disposition home or self-care (01) ==
LOC: HO.HMGAL 09:28
PROVIDERS: PCP Internal Medicine; Visit Provider Registered Nurse Emergency
DX: J30.89 Other allergic rhinitis (principal)
CPT/HCPCS: 95117; 95165

== ENCOUNTER 2025-07-28 10:56 | Outpatient (AMB) | payer BC, SELFPAY ==
--- OUTSIDE RECORDS SUMMARY | 2025-07-28 13:17 | XMS_ITS | Clinical Summary ---
Author Organization [facility] Address [address] [place] [address] Care Team Providers Care Director Supply Chain Name Role Phone Becca Butler MD Primary Care Provider [phone] Allergies Active Allergy Reactions Criticality Noted Date Comments Elemental Sulfur 05/15/2019 Nitrofurantoin 05/15/2019 Other 05/15/2019 Dust/Mold/Pollen/Grass/Trees/Weeds Penicillins 05/15/2019 Medications Medication Sig Dispensed Refills Start Date End Date Status UNABLE TO FIND Allergy Injections 0 Ac tive Fexofenadine HCl (ANDRZEJ PO) Take by mouth. 0 Active raNITIdine HCl (ACID TRAVEL JOURNALIST PO) Take by mouth. 0 Active Multiple [...] age to complete this topic Care Teams Director Supply Chain Relationship Specialty Start Date End Date Becca Butler MD PCP - General Internal Medicine 05/15/19
--- OUTSIDE RECORDS SUMMARY | 2025-07-28 13:17 | XMS_ITS | Clinical Summary ---
Author Organization [facility] [address] [place] [address] [place] [phone] Phone Care Team Providers Care Senior Environmental Consultant Name Role Phone Deanna Marie MD Primary Care Provider [phone] Allergies Active Allergy Reactions Criticality Noted Date [...] every 6 (six) hours if needed (Pain). Active MULTIVITAMIN ORAL Take by mouth. Activ [...] Encounters Date Type Department Care Team Description 07/16/2025 Telephone Adult Medicine [address] [phone] Deanna Marie MD 06/27/2025 9:30 AM EDT Office Visit Adult Medicine [address] [phone] Deanna Marie MD PE (physical exam), annual (Primary Dx); Lung nodule; Prediabetes; Overweight (BMI 25.0-29.9) from Last 3 Months Immunizations Immunization Administration Dates Next Due DTP 10/23/1970,,12/07/1962,1961,1961,1961,1961 Hepatitis A Adult (Havrix; V aqta) 19yo and older 09/03/2008,01/07/2008 Hepatitis B (Fvpitno-K-Jixql , Recombivax HB-Adult) 19yo and older 07/17/2013,02/13/2013,01/16/2013 [...] for your loved ones. For example, child care associate or elderly care for an older adult? [...] Date Recorded What is your living situation? Unrecognized valu e 06/26/2025 Comments No Sex and Gender Information [...] Upcoming Encounters Date Type Department Care Team ([facility] st Contact Info) Description 11/03/2025 7:30 AM EST Appointment Radiology Department [address] [phone] Health Maintenance Due Date Last Done Comments COVID-19 Vaccine (3 - Moderna risk series) 02/17/2021 01/20/2021, 12/23/2020 HIV Screening 09/25/2022 Influenza Vaccine (#1) 2025 , 08/26/2019, 09/28/2009, Additional history exists Breast Cancer Screening 11/01/2025 11/01/19, 04/20/2023, 09/02/2021, Additional history exists Social Influencers of Health Screening 06/26/2026 06/26/2025 Cervical Cancer Screening: HPV 12/08/2026 11/23/2021 Cholesterol Screening (Lipid Panel) 07/02/2030 07/02/2025, 07/23/2024, 07/23/2024 Colorectal Cancer Screening: Colonoscopy 04/07/2032 [...] Procedure Name Priority Date/Time Associated Diagnosis Comments CBC WITH AUTO DIFFERENTIAL Routine 07/02/2025 8:35 AM EDT PE (physical exam), annual CBC AND DIFFERENTIAL Routine 07/02/2025 8:35 AM EDT PE (physical exam), annual COMPREHENSIVE METABOLIC PANEL Routine 07/02/2025 8:35 AM EDT PE (physical exam), annual LIPID PANEL WITH REFLEX TO DIRECT LDL Routine 07/02/2025 8:35 AM EDT PE (physical exam), annual HEMOGLOBIN A1C Routine 07/02/2025 8:35 AM EDT Prediabetes MG MAMMO DIGITAL SCREENING W AMADOR BILAT Routine 11/01/2024 4:19 PM EST Encounter for screening mammogram for breast cancer HM COLONOSCOPY Routine 04/07/2022 HPV Routine 11/23/2021 HEPATITIS C SCREENING Routine 12/13/2014 from Last 3 Months or Most Recently Relevant to Health Maintenance Results * (ABNORMAL) Lipid panel with reflex to direct LDL (07/02/2025 8:35 AM EDT) Cholesterol 216(H) 0 - 200 mg/dL LAB CHEMISTRY METHOD 07/02/2025 10:46 AM EDT [facility] Triglycerides 59 0 - 150 mg/dL LAB CHEMISTRY METHOD 07/02/2025 10:46 AM EDT [facility] HDL 78 >=40 mg/dL LAB CHEMISTRY METHOD 07/02/2025 10:46 AM EDT [facility] LDL Calculated 126(H) 0 - 100 mg/dL LAB CHEMISTRY METHOD 07/02/2025 10:46 AM T [facility] Comment:Estimated LDL Calcul ated using equation: Total cholesterol - HDL cholesterol - (Triglycerides/5) VLDL Cholesterol Eugene 11.8 mg/dL LAB CHEMISTRY METHOD 07/02/2025 10:46 AM EDT [facility] Non HDL Chol. (LDL+VLDL) 138 <145 mg/dL LAB CHEMISTRY METHOD 07/02/2025 10:46 AM EDT [facility] Chol/HDL Ratio 2.8 0.0 - 4.4 LAB CHEMISTRY METHOD 07/02/2025 10:46 AM EDT [facility] Blood Venous blood specimen / Unknown Venipuncture / Unknown 07/02/2025 8:35 AM EDT 07/02/2025 8:35 AM EDT us Deanna Marie MD LAB BLOOD ORDERABLES Final Resul t [facility] [address] [place] [address], * (ABNORMAL) CBC auto differential (07/02/2025 8:35 AM EDT) WBC 6.2 4.8 - 10.8 K/mcL LAB HEMETOLOGY METHOD 07/02/2025 10:27 AM [facility] RBC 4.50 3.80 - 4.80 M/mcL LAB HEMETOLOGY METHOD 07/02/2025 10:27 AM [facility] Hemoglobin 13.7 11.5 - 16.0 g/dL LAB HEMETOLOGY METHOD 07/02/2025 10:27 AM [facility] Hematocrit 41.4 35.0 - 47.0 % LAB HEMETOLOGY METHOD 07/02/2025 10:27 AM [facility] MCV 91.6 79.0 - 98.0 FL LAB HEMETOLOGY METHOD 07/02/2025 10:27 AM [facility] MCH 30.3 27.0 - 32.0 pcg LAB HEMETOLOGY METHOD 07/02/2025 10:27 AM [facility] MCHC 33.1 32.0 - 37.0 g/dL LAB HEMETOLOGY METHOD 07/02/2025 10:27 AM [facility] RDW 12.2 11.0 - 15.0 % LAB HEMETOLOGY METHOD 07/02/2025 10:27 AM [facility] Platelets 215 130 - 400 K/mcL LAB HEMETOLOGY METHOD 07/02/2025 10:27 AM [facility] MPV 12.3(H) 7.0 - 11.0 FL LAB HEMETOLOGY METHOD 07/02/2025 10:27 AM [facility] NRBC 0.0 <1.0 % LAB HEMETOLOGY METHOD 07/02/2025 10:27 AM [facility] NRBC Absolute 0.00 <0.10 K/mcL LAB HEMETOLOGY METHOD 07/02/2025 10:27 AM [facility] Neutrophils Relative 59.5 % LAB HEMETOLOGY METHOD 07/02/2025 10:27 AM [facility] Lymphocytes Relative 27.6 % LAB HEMETOLOGY METHOD 07/02/2025 10:27 AM [facility] Monocytes Relative 7.3 % LAB HEMETOLOGY METHOD 07/02/2025 10:27 AM [facility] Eosinophils Relative 4.7 % LAB HEMETOLOGY METHOD 07/02/2025 10:27 AM [facility] Basophils Relative 0.6 % LAB HEMETOLOGY METHOD 07/02/2025 10:27 AM [facility] Immature Granulocytes Relative 0.3 % LAB HEMETOLOGY METHOD 07/02/2025 10:27 AM [facility] Neutrophils Absolute 3.67 1.50 - 7.00 K/mcL LAB HEMETOLOGY METHOD 07/02/2025 10:27 AM EDT [facility] Lymphocytes Absolute 1.70 1.00 - 5.00 K/mcL LAB HEMETOLOGY METHOD 07/02/2025 10:27 AM EDT [facility] Monocytes Absolute 0.45 0.20 - 1.00 K/[facility] LAB HEMETOLOGY METHOD 07/02/2025 10:27 AM EDT [facility] Eosinophils Absolute 0.29 0.00 - 0.50 K/[facility] LAB HEMETOLOGY METHOD 07/02/2025 10:27 AM EDT [facility] Basophils Absolute 0.04 0.00 - 0.20 K/[facility] LAB HEMETOLOGY METHOD 07/02/2025 10:27 AM EDT [facility] Immature Granulocytes Absolute 0.02 0.00 - 0.03 K/[facility] LAB HEMETOLOGY METHOD 07/02/2025 10:27 AM EDT [facility] Blood Venous blood specimen / Unknown Venipuncture / Unknown 07/02/2025 8:35 AM EDT 07/02/2025 8:35 AM EDT us Deanna Marie MD LAB BLOOD ORDERABLES Final Resul t [facility] [address] [place] [address], * Hemoglobin A1c (07/02/2025 8:35 AM EDT) Hemoglobin A1C 5.8 <6.5 % LAB CHEMISTRY METHOD 07/02/2025 9:30 PM EDT [facility] Mean Bld Glu Estim. 120 mg/dL LAB CHEMISTRY METHOD 07/02/2025 9:30 PM EDT [facility] Blood Venous blood specimen / Unknown Venipuncture / Unknown 07/02/2025 8:35 AM EDT 07/02/2025 8:35 AM EDT us Deanna Marie MD LAB BLOOD ORDERABLES Final Resul t [facility] [address] [place] [address], * Comprehensive metabolic panel (07/02/2025 8:35 AM EDT) Sodium 140 133 - 145 mmol/L LAB CHEMISTRY METHOD 07/02/2025 10:46 AM [facility] Potassium 4.0 3.5 - 5.5 mmol/L LAB CHEMISTRY METHOD 07/02/2025 10:46 AM [facility] Chloride 105 96 - 110 mmol/L LAB CHEMISTRY METHOD 07/02/2025 10:46 AM [facility] CO2 32 21 - 32 mmol/L LAB CHEMISTRY METHOD 07/02/2025 10:46 AM [facility] Anion Gap 3 3 - 11 LAB CHEMISTRY METHOD 07/02/2025 10:46 AM [facility] Glucose 96 70 - 100 mg/dL LAB CHEMISTRY METHOD 07/02/2025 10:46 AM [facility] BUN 15 5 - 25 mg/dL LAB CHEMISTRY METHOD 07/02/2025 10:46 AM [facility] Creatinine 0.63 0.50 - 1.10 mg/dL LAB CHEMISTRY METHOD 07/02/2025 10:46 AM [facility] eGFR 99 >=60 mL/min/1. 73m2 LAB CHEMISTRY METHOD 07/02/2025 10:46 AM [facility] Comment:Calculation based on the Chronic Kidney Disease Epidemiology Collaboration (CKD-EPI) equation refit without adjustment for race. BUN/Creatinine Ratio 23.8 LAB CHEMISTRY METHOD 07/02/2025 10:46 AM [facility] Calcium 9.1 8.5 - 10.5 mg/dL LAB CHEMISTRY METHOD 07/02/2025 10:46 AM EDT [facility] AST (SGOT) 18 10 - 42 unit/L LAB CHEMISTRY METHOD 07/02/2025 10:46 AM EDT [facility] ALT (SGPT) 30 10 - 60 unit/L LAB CHEMISTRY METHOD 07/02/2025 10:46 AM EDT [facility] Alkaline Phosphatase 91 42 - 121 unit/L LAB CHEMISTRY METHOD 07/02/2025 10:46 AM EDT [facility] Total Protein 6.4 6.0 - 8.0 g/dL LAB CHEMISTRY METHOD 07/02/2025 10:46 AM EDT [facility] Albumin 3.9 3.2 - 5.0 g/dL LAB CHEMISTRY METHOD 07/02/2025 10:46 AM [facility] Total Bilirubin 0.6 0.0 - 1.4 mg/dL LAB CHEMISTRY METHOD 07/02/2025 10:46 AM EDT [facility] Blood Venous blood specimen / Unknown Venipuncture / Unknown 07/02/2025 8:35 AM EDT 07/02/2025 8:35 AM EDT us Deanna Marie MD LAB BLOOD ORDERABLES Final Resul t [facility] [address] [place] [address], * MG Mammo Digital Screening w Amador bilat (11/01/2024 4:19 PM EST) Anatomical Region Laterality Modality Breast Bilateral Mammography 11/04/2024 6:15 PM EST Impressions 11/04/2024 6:20 PM EST No mammographic evidence of malignancy. BI-RADS CATEGORY: 1 - NEGATIVE RECOMMENDATION: Screening bilateral mammogram is recommended in 1 year. Mammo Location: [facility], [address] [place] [address], [id number], . -------- FINAL REPORT -------- Dictated By: Nicolasa Sheth Dictated Date: 11/04/2024 18:15 ET Assigned Physician: Nicolasa Sheth Reviewed and Electronically Signed By: Nicolasa Sheth Signed Date: 11/04/2024 18:20 ET Workstation ID: [id number] Transcribed By: Self Edit Transcribed Date: 11/04/2024 [...] is recommended in 1 year. Mammo Location: [facility], [address] [place] [address], [id number], . -------- FINAL REPORT -------- Dictated By: Nicolasa Sheth Dictated Date: 11/04/2024 18:15 ET Assigned Physician: Nicolasa Sheth Reviewed and Electronically Signed By: Nicolasa Sheth Signed Date: 11/04/2024 18:20 ET Workstation ID: [id number] Transcribed By: Self Edit Transcribed Date: 11/04/2024 18:15 ET Deanna Marie MD IMG BI PROCEDURES Final Result * Colonoscopy (04/07/2022) Pathologist [facility] Colonoscopy No interpretation , abstracted Anatomical Region Laterality Modality Other Historical Provider HEALTH MAINTENANCE Final Result * Cervical Cancer Screening: HPV (11/23/2021) [facility] Cervical Cancer Screening: HPV Negative, abstracted Historical Provider HEALTH MAINTENANCE Final Result * Hepatitis C Screening (12/13/2014) Pathologist [facility] Hepatitis C Screening Abstracted Historical Provider HEALTH MAINTENANCE Final Result from Last 3 Months or Most Recently Relevant to Health Maintenance Insurance [facility] Care Teams Senior Environmental Consultant Relationship Specialty Start Date End Date Deanna Marie MD [address] [place] [phone] PCP - General Internal Medicine 06/06/22
== END 2025-07-28 11:03 | disposition home or self-care (01) ==
LOC: HO.HMGAL 10:56
PROVIDERS: PCP Internal Medicine; Visit Provider Registered Nurse Emergency
DX: J30.89 Other allergic rhinitis (principal)
CPT/HCPCS: 95117; 95165

== ENCOUNTER 2025-08-25 12:44 | Outpatient (AMB) | payer BC, SELFPAY ==
--- OUTSIDE RECORDS SUMMARY | 2025-08-25 16:05 | XMS_ITS | Clinical Summary ---
Author Organization [facility] Address [address] [place] [address] Care Team Providers Care Wrapper Layer Name Role Phone Becca Butler MD Primary Care Provider [phone] Allergies Active Allergy Reactions Criticality Noted Date Comments Elemental Sulfur 05/15/2019 Nitrofurantoin 05/15/2019 Other 05/15/2019 Dust/Mold/Pollen/Grass/Trees/Weeds Penicillins 05/15/2019 Medications Medication Sig Dispensed Refills Start Date End Date Status UNABLE TO FIND Allergy Injections 0 Ac tive Fexofenadine HCl (ANDRZEJ PO) Take by mouth. 0 Active raNITIdine HCl (ACID GEOLOGICAL SCIENCE TEACHER PO) Take by mouth. 0 Active Multiple [...] age to complete this topic Care Teams Wrapper Layer Relationship Specialty Start Date End Date Becca Butler MD PCP - General Internal Medicine 05/15/19
--- OUTSIDE RECORDS SUMMARY | 2025-08-25 16:06 | XMS_ITS | Clinical Summary ---
Author Organization [facility] [address] [place] [address] [place] [id number] Phone Care Team Providers Care Sock Lining Examiner Name Role Phone Deanna Marie MD Primary Care Provider [phone] Allergies Active Allergy Reactions Criticality Noted Date [...] Encounters Date Type Department Care Team Description 08/18/2025 Telephone Adult Medicine [address] [phone] Deanna Marie MD 07/16/2025 Telephone Adult Medicine [address] [phone] Deanna Marie MD 06/27/2025 9:30 AM EDT Office Visit Adult Medicine [address] [phone] Deanna Marie MD PE (physical exam), annual (Primary Dx); Lung nodule; Prediabetes; Overweight (BMI 25.0-29.9) from Last 3 Months Immunizations Immunization Administration Dates Next Due DTP 10/23/1970,,12/07/1962,1961,1961,1961,1961 Hepatitis A Adult (Havrix; V aqta) 19yo and older 09/03/2008,01/07/2008 Hepatitis B (Nhstplj-R-Axnhu , Recombivax HB-Adult) 19yo and older 07/17/2013,02/13/2013,01/16/2013 [...] care for your loved ones. For example, children's tutor nursery or elderly care for an older adult? [...] Upcoming Encounters Date Type Department Care Team ([facility] st Contact Info) Description 11/03/2025 7:30 AM EST Appointment Radiology Department [address] [phone] Health Maintenance Due Date Last Done Comments [...] Encounter for screening mammogram for breast cancer COLONOSCOPY Routine 04/07/2022 HPV Routine 11/23/2021 HEPATITIS [...] 10:46 AM EDT [facility] Comment:Estimated LDL Calcul [...] Resul t [facility] [address] [place] [address], [place] [phone] * (ABNORMAL) CBC auto differential (07/02/2025 8:35 AM EDT) WBC 6.2 4.8 - 10.8 K/mcL LAB HEMETOLOGY METHOD 07/02/2025 10:27 AM EDT [facility] RBC 4.50 3.80 - 4.80 M/[facility] LAB HEMETOLOGY METHOD 07/02/2025 10:27 AM EDT [facility] Hemoglobin 13.7 11.5 - 16.0 g/dL LAB HEMETOLOGY METHOD 07/02/2025 10:27 AM EDT [facility] Hematocrit 41.4 35.0 - 47.0 % LAB HEMETOLOGY METHOD 07/02/2025 10:27 AM EDT [facility] MCV 91.6 79.0 - 98.0 FL LAB HEMETOLOGY METHOD 07/02/2025 10:27 AM [facility] MCH 30.3 27.0 - 32.0 pcg LAB HEMETOLOGY METHOD 07/02/2025 10:27 AM [facility] MCHC 33.1 32.0 - 37.0 g/dL LAB HEMETOLOGY METHOD 07/02/2025 10:27 AM [facility] RDW 12.2 11.0 - 15.0 % LAB HEMETOLOGY METHOD 07/02/2025 10:27 AM [facility] Platelets 215 130 - 400 K/mcL LAB HEMETOLOGY METHOD 07/02/2025 10:27 AM [facility] MPV 12.3(H) 7.0 - 11.0 FL LAB HEMETOLOGY METHOD 07/02/2025 10:27 AM [facility] NRBC 0.0 <1.0 % LAB HEMETOLOGY METHOD 07/02/2025 10:27 AM [facility] NRBC Absolute 0.00 <0.10 K/mcL LAB HEMETOLOGY METHOD 07/02/2025 10:27 AM [facility] Neutrophils Relative 59.5 % LAB HEMETOLOGY METHOD 07/02/2025 10:27 AM [facility] Lymphocytes Relative 27.6 % LAB HEMETOLOGY METHOD 07/02/2025 10:27 AM [facility] Monocytes Relative 7.3 % LAB HEMETOLOGY METHOD 07/02/2025 10:27 AM [facility] Eosinophils Relative 4.7 % LAB HEMETOLOGY METHOD 07/02/2025 10:27 AM [facility] Basophils Relative 0.6 % LAB HEMETOLOGY METHOD 07/02/2025 10:27 AM [facility] Immature Granulocytes Relative 0.3 % LAB HEMETOLOGY METHOD 07/02/2025 10:27 AM EDT [facility] Neutrophils Absolute 3.67 1.50 - 7.00 K/[facility] HEMETOLOGY METHOD 07/02/2025 10:27 AM EDT [facility] Lymphocytes Absolute 1.70 1.00 - 5.00 K/mcL LAB HEMETOLOGY METHOD 07/02/2025 10:27 AM EDT [facility] Monocytes Absolute 0.45 0.20 - 1.00 K/[facility] HEMETOLOGY METHOD 07/02/2025 10:27 AM EDT [facility] Eosinophils Absolute 0.29 0.00 - 0.50 K/[facility] HEMETOLOGY METHOD 07/02/2025 10:27 AM EDT [facility] Basophils Absolute 0.04 0.00 - 0.20 K/mcL LAB HEMETOLOGY METHOD 07/02/2025 10:27 AM EDT [facility] Immature Granulocytes Absolute 0.02 0.00 - 0.03 K/[facility] HEMETOLOGY METHOD 07/02/2025 10:27 AM EDT [facility] Blood Venous blood specimen / Unknown Venipuncture / Unknown 07/02/2025 8:35 AM EDT 07/02/2025 8:35 AM EDT us Deanna Marie MD LAB BLOOD ORDERABLES Final Resul t [facility] [address] [place] [address], * Hemoglobin A1c (07/02/2025 8:35 AM EDT) [...] Resul t [facility] [address] [place] [address], * Comprehensive metabolic panel (07/02/2025 8:35 AM EDT) Sodium 140 133 - 145 mmol/L LAB CHEMISTRY METHOD 07/02/2025 10:46 AM [facility] Potassium 4.0 3.5 - 5.5 mmol/L LAB CHEMISTRY METHOD 07/02/2025 10:46 AM [facility] Chloride 105 96 - 110 mmol/L LAB CHEMISTRY METHOD 07/02/2025 10:46 AM [facility] CO2 32 21 - 32 mmol/L LAB CHEMISTRY METHOD 07/02/2025 10:46 AM [facility] Anion Gap 3 3 - 11 LAB CHEMISTRY METHOD 07/02/2025 10:46 AM [facility] Glucose 96 70 - 100 mg/dL LAB CHEMISTRY METHOD 07/02/2025 10:46 AM [facility] BUN 15 5 - 25 mg/dL LAB CHEMISTRY METHOD 07/02/2025 10:46 AM [facility] Creatinine 0.63 0.50 - 1.10 mg/dL LAB CHEMISTRY METHOD 07/02/2025 10:46 AM [facility] eGFR 99 >=60 mL/min/1. 73m2 LAB CHEMISTRY METHOD 07/02/2025 10:46 AM [facility] Comment:Calculation based on the Chronic Kidney Disease Epidemiology Collaboration (CKD-EPI) equation refit without adjustment for race. BUN/Creatinine Ratio 23.8 LAB CHEMISTRY METHOD 07/02/2025 10:46 AM [facility] Calcium 9.1 8.5 - 10.5 mg/dL LAB CHEMISTRY METHOD 07/02/2025 10:46 AM [facility] AST (SGOT) 18 10 - 42 unit/L LAB CHEMISTRY METHOD 07/02/2025 10:46 AM [facility] ALT (SGPT) 30 10 - 60 unit/L LAB CHEMISTRY METHOD 07/02/2025 10:46 AM [facility] Alkaline Phosphatase 91 42 - 121 unit/L LAB CHEMISTRY METHOD 07/02/2025 10:46 AM [facility] Total Protein 6.4 6.0 - 8.0 g/dL LAB CHEMISTRY METHOD 07/02/2025 10:46 AM [facility] Albumin 3.9 3.2 - 5.0 g/dL LAB CHEMISTRY METHOD 07/02/2025 10:46 AM [facility] Total Bilirubin 0.6 0.0 - 1.4 mg/dL LAB CHEMISTRY METHOD 07/02/2025 10:46 AM [facility] Blood Venous blood specimen / Unknown Venipuncture / Unknown 07/02/2025 8:35 AM EDT 07/02/2025 8:35 AM EDT us Deanna Marie MD LAB BLOOD ORDERABLES Final Resul t [facility] [address] [place] [address], [place] [phone] * MG Mammo Digital Screening w Amador bilat (11/01/2024 4:19 PM EST) Anatomical Region Laterality Modality Breast Bilateral Mammography 11/04/2024 6:15 PM EST Impressions 11/04/2024 6:20 PM EST No mammographic evidence of malignancy. BI-RADS CATEGORY: 1 - NEGATIVE RECOMMENDATION: Screening bilateral mammogram is recommended in 1 year. Mammo Location: [facility], [address] [place] [address], [id number], . -------- FINAL REPORT -------- Dictated By: Nicolasa Sheth Dictated Date: 11/04/2024 18:15 ET Assigned Physician: Nicolasa Sheth Reviewed and Electronically Signed By: Nicolasa Sheth Signed Date: 11/04/2024 18:20 ET Workstation ID: [id number] Transcribed By: Self Edit Transcribed Date: 11/04/2024 [...] is recommended in 1 year. Mammo Location: [facility], [address] [place] [address], [id number], . -------- FINAL REPORT -------- Dictated By: Nicolasa Sheth Dictated Date: 11/04/2024 18:15 ET Assigned Physician: Nicolasa Sheth Reviewed and Electronically Signed By: Nicolasa Sheth Signed Date: 11/04/2024 18:20 ET Workstation ID: [id number] Transcribed By: Self Edit Transcribed Date: 11/04/2024 18:15 ET Deanna Marie MD IMG BI PROCEDURES Final Result * Colonoscopy (04/07/2022) Colonoscopy No interpretation , abstracted Anatomical Region Laterality Modality Other Historical Provider HEALTH MAINTENANCE Final Result * Cervical Cancer Screening: HPV (11/23/2021) Pathologist [facility] Cervical Cancer Screening: HPV Negative, abstracted Historical Provider HEALTH MAINTENANCE Final Result * Hepatitis C Screening (12/13/2014) Hepatitis C Screening Abstracted Historical Provider HEALTH MAINTENANCE Final Result from Last 3 Months or Most Recently Relevant to Health Maintenance Insurance [facility] Care Teams Sock Lining Examiner Relationship Specialty Start Date End Date Deanna Marie MD [address] [place] [phone] PCP - General Internal Medicine 06/06/22
--- OUTSIDE RECORDS SUMMARY | 2025-08-25 16:06 | XMS_ITS | Data Portability ---
Author Organization [facility], [address] Address [address] [place] [address] Assessment No assessment recorded. Plan of Treatment Reminders Order Date Submit Date Provider Last Modified By Organization Details Last Modified Time Details Appointments None recorded. Lab urinalysis, dipstick 2023 [email or web address] [facility], [address] [place], [address], 4 13:53:44 culture, urine 2023 024 [email or web address] [facility], [address] [place] [address], [place], [address], 4 22:05:36 rapid strep group A, throat 2023 024 [email or web address] _[address], [address] [place], [address], 4 12:34:27 Referral None recorded. Procedures None recorded. Surgeries None recorded. Imaging XR, chest, 2 view 2022 023 [facility], [address] [place] [address], [place], [address], 3 08:04:33 Medication Orders cefpodoxime 100 mg tablet 2023 024 [facility], [address] [place], [address], 4 13:53:46 albuterol sulfate 2.5 mg/3 mL (0.083 %) solution for nebulizatio n 2023 024 [email or web address] Not available 4 12:12:46 ipratropium bromide 0.02 % solution for inhalation 2023 024 [email or web address] Not available 4 12:12:29 albuterol sulfate HFA 90 mcg/actuati on aerosol inhaler 2023 024 [email or web address] [facility], [address] [place], [address], 4 13:42:07 benzonatate 200 mg capsule 2023 024 [email or web address] [facility], [address] [place], [address], 4 12:12:15 prednisone 20 mg tablet 2023 024 [email or web address] [facility], [address] [place], [address], 4 12:12:35 Allergy Relief (fluticason e) 50 mcg/actuati on nasal spray,suspe nsion 2023 024 [email or web address] [facility], [address] [place], [address], 4 12:14:49 Zithromax Z-Aldo 250 mg tablet 2022 023 NEETA [facility], [address] [place], [address], 4 14:22:12 benzonatate 200 mg capsule 2022 023 [email or web address] [facility], [address] [place], [address], 4 12:12:15 loratadine 10 mg tablet 2022 023 NEETA [facility], [address] [place], [address], 4 14:22:32 albuterol sulfate HFA 90 mcg/actuati on aerosol inhaler 2022 023 [email or web address] [facility], [address] [place], [address], 4 13:42:07 prednisone 20 mg tablet 2022 023 [email or web address] [facility], [address] [place], [address], 4 12:12:35 Patient TargetsNo targets recorded. Patient Instructions Encounter Date Encounter Id Patient Instructions Last Modified By Organization Details Last Modified Time 10/12/2023 [id number] cough: care instructions [email or web address] Not available 10/12/2023 13:56:52 acute bronchitis education [email or web address] Not available 10/12/2023 13:56:52 bronchitis: care instructions [email or web address] Not available 10/12/2023 13:56:52 Based on your Presentation, Exam, and Lab Testing you are being diagnosed with Strep Throat. Your Rapid Strep Test was positive. I have also ordered a Chest xray from outside clinic to rule out Pneumonia. Please get that done today. I am going to prescribe you and antibiotic to cover this infection. Please be sure to complete the full course of this antibiotic to prevent antibiotic resistance. It is also important to complete this antibiotic because this infection is what causes Scarlet Fever/Rheumatic Heart Disease. Antibiotics will typically take 4-5 days to start to work with symptom improvement. The following are my other recommendations to help with symptoms and is important for this diagnosis: 1. Do not share any food or drinks - strep is passed through direct saliva exchange (NOT IN THE AIR) 2. Change your toothbrush in 3-4 days so that you don't re-infect yourself after you complete the antibiotic. 3. Take Ibuprofen or Tylenol if you do not have any allergies to these medications. If you take a blood thinner you should not take NSAIDS like Ibuprofen. These medication will help with the inflammation in your respiratory tract which should help the cough. 4. Do not take any Cold Medications that have a Decongestant in it - this will dry out your throat and make the sore throat worse. 5. Drinking Hot Tea with honey can help coat and soothe your throat. 6. You would be considered contagious for the next 24-48 hours, or until fever resolves. I would be seen again if you develop any of the following symptoms. 1. Fever > 101.0 2. Stiff neck - where you can't turn your neck 3. Trouble swallowing your saliva - drooling 4. Swelling of a lymph node in your throat that is painful to touch 5. Difficulty breathing 6. Severe Headache Thank you for using [facility] today, please feel free to contact our office if you have any questions or concerns. [email or web address] Not available 10/12/2023 13:56:45 A/P: STREP PHaryngitis with resp manifestations. Due to exam, patient WAS GIVEN an added z-pack. A CXR, and additional meds were also prescribed/written. In person f/u also warranted. Pt agreed to plan. [email or web address] Not available 10/12/2023 16:28:45 11/12/2023 [id number] peak flow* NEETA Not available 10/24 15:09:34 Patient instruct ed on worsening signs and symptoms that would require further evaluation by ED or PCP such as fever of 101.0 or greater, congestion accompanied with coughing, vomiting, diarrhea, abdominal pain, decreased oral intake, lethargy, or other new symptom(s) experienced not discussed during this visit. Use humidifier and ensure good hydration. If you experience new concerning symptoms, shortness of breath, respiratory distress, or chest pain go to the ER. Use the medications prescribed. May use Decongestants if tolerated and no history of elevated blood pressure or Diabetes. Use saline nasal saline and Flonase daily for1 week. You may use tylenol for pain/fever. Do not take prednisone with Ibuprofen. Get some extra rest. When should you call for help? Call anytime you think you may need emergency care. For example, call if: You have severe trouble breathing. Call your doctor now or seek immediate medical care if: You have new or worse trouble breathing. You cough up dark brown or bloody mucus (sputum). You have a new or higher fever. You have a new rash. Watch closely for changes in your health, and be sure to contact your doctor if: You cough more deeply or more often, especially if you notice more mucus or a change in the color of your mucus. You are not getting better as expected. [email or web address] Not available 11/12/2023 14:38:10 09/11/2024 [id number] upper respirator y infection (cold): care instructions [email or web address] Not available 09/11/2024 12:34:27 Reason for Referral None Reported. Results Created Date Observation Date Name Description Value Unit Range Abnormal Flag Note LastModifiedBy Organization Detail LastModifiedTime 11/12/19 24 11/12/2023 peak flow* Pre (L/min) 315 Not Available ross [address] [place], [address], 11/12/2023 15:07:15 11/12/19 24 11/12/2023 peak flow* Post (L/min) 300 Not Available ross [address] [place], [address], 11/12/2023 15:07:15 11/12/19 24 11/12/2023 peak flow* Oxygen Saturation 99 Not Available ross [address] [place], [address], 11/12/2023 15:07:15 11/12/19 24 11/12/2023 peak flow* Pulse 93 Not Available pia patricia [address] [place], [address], 11/12/2023 15:07:15 09/11/20 24 09/11/2024 rapid strep group A, throa t Unknown Analyte negati ve Not Available mehreen herring [address] [place], [address], 09/11/2024 12:25:31 10/20/20 24 10/22/2024 URINE CULTU RE, ROUTI NE urine culture, routine FINAL REPORT abnormal Not Available [facility] ([facility]) [address] [facility], [place], [address], 10/22/2024 10:05:49 10/20/20 24 10/22/2024 URINE CULTU RE, ROUTI NE result 1 ESCHER ICHIA COLI abnormal Great er than 100,0 00 colon y formi ng units per mL Cefaz luis manuel <=4 ug/mL Cefaz luis manuel with an ANGELIA <=16 predi cts susce ptibi lity to the oral agent s cefac lucía, cefdi alex, cefpo doxim e, cefpr ozil, cefur oxime , cepha lexin , and lorac arbef when used for thera py of uncom plica jeffry urina ry tract infec tions due to E. coli, Klebs iella pneum oniae , and Prote us mirab ilis. Not Available [facility] ([facility]) [address] [facility], [place], [address], 10/22/2024 10:05:49 10/20/20 24 10/22/2024 URINE CULTU RE, ROUTI NE antimicrobia l susceptibili ty COMMEN T S = Susce ptibl e; I = Inter media te; R = Resis tant P = Posit rubén; N = Negat rubén MICS are expre ssed in micro grams per mL Antib iotic RSLT# 1 RSLT# 2 RSLT# 3 RSLT# 4 Amoxi cilli n/Cla vulan ic Acid S Ampic illin R Cefep lanie S Ceftr iaxon e S Cefur oxime S Cipro floxa kathrin S Ertap enem S Genta micin S Imipe nem S Levof loxac in S Merop enem S Nitro furan toin S Piper acill in/Ta zobac perales S Tetra cycli ne S Tobra mycin S Trime thopr im/Henry lfa R Not Available [facility] ([facility]) [address] [facility], [place], [address], 10/22/2024 10:05:49 10/20/20 24 10/20/2024 urina lysis , dipst ick Unknown Analyte Normal = light yellow Not Available mehreen herring [address] [place] [address], 10/20/2024 13:44:18 10/20/20 24 10/20/2024 urina lysis , dipst ick Unknown Analyte Normal = clear Not Available [place] [facility] [address] [place], [address], 10/20/2024 13:44:18 10/20/20 24 10/20/2024 urina lysis , dipst ick Unknown Analyte Normal = negati ve Not Available [place] [address] [place], [address], 10/20/2024 13:44:18 10/20/20 24 10/20/2024 urina lysis , dipst ick Unknown Analyte Normal = Negati ve Not Available [place] [address] [place], [address], 10/20/2024 13:44:18 10/20/20 24 10/20/2024 urina lysis , dipst ick Unknown Analyte Normal = Negati ve Not Available [place] [address] [place], [address], 10/20/2024 13:44:18 10/20/20 24 10/20/2024 urina lysis , dipst ick Unknown Analyte Normal = 1.010, 1.015, 1.020 Not Available [place] [address] [place], [address], 10/20/2024 13:44:18 10/20/20 24 10/20/2024 urina lysis , dipst ick Unknown Analyte Normal = Negati ve Not Available mehreen herring [address] [place], [address], 10/20/2024 13:44:18 10/20/20 24 10/20/2024 urina lysis , dipst ick Unknown Analyte Normal = 6.5, 7.0, 7.5, 8.0 Not Available mehreen herring [address] [place], [address], 10/20/2024 13:44:18 10/20/2010/20/2024 urina lysis , dipst ick Unknown Analyte Normal = Negati ve Not Available mehreen herring [address] [place], [address], 10/20/2024 13:44:18 10/20/20 24 10/20/2024 urina lysis , dipst ick Unknown Analyte Normal = 0.2, 1.0 Not Available [place] [address] [place], [address], 10/20/2024 13:44:18 10/20/20 24 10/20/2024 urina lysis , dipst ick Unknown Analyte Normal = Negati ve Not Available [place] [address] [place], [address], 10/20/2024 13:44:18 10/20/20 24 10/20/2024 urina lysis , dipst ick Unknown Analyte Normal = Negati ve Not Available [place] [address] [place], [address], 10/20/2024 13:44:18 10/20/20 24 10/20/2024 urina lysis , dipst ick Unknown Analyte Yellow Not Available ro[place] [address] [place], [address], 10/20/2024 13:44:18 10/20/20 24 10/20/2024 urina lysis , dipst ick Unknown Analyte Clear Not Available _ [address] [address] [place], [address], 10/20/2024 13:44:18 10/20/20 24 10/20/2024 urina lysis , dipst ick Unknown Analyte Negati ve Not Available _mehreen herring [address] [place], [address], 10/20/2024 13:44:18 10/20/20 24 10/20/2024 urina lysis , dipst ick Unknown Analyte Negati ve Not Available _mehreen herring [address] [place], [address], 10/20/2024 13:44:18 10/20/20 24 10/20/2024 urina lysis , dipst ick Unknown Analyte Negati ve Not Available _mehreen herring [address] [place], [address], 10/20/2024 13:44:18 10/20/20 24 10/20/2024 urina lysis , dipst ick Unknown Analyte 1.020 Not Available _ ross [address], [address], 10/20/2024 13:44:18 10/20/20 24 10/20/2024 urina lysis , dipst ick Unknown Analyte Small Not Available _ ross [address], [address], 10/20/2024 13:44:18 10/20/20 24 10/20/2024 urina lysis , dipst ick Unknown Analyte 6.5 Not Available _ ross [address] [place], [address], 10/20/2024 13:44:18 10/20/20 24 10/20/2024 urina lysis , dipst ick Unknown Analyte 30 mg/dL Not Available _mehreen herring [facility] [address] [place], [address], 10/20/2024 13:44:18 10/20/20 24 10/20/2024 urina lysis , dipst ick Unknown Analyte 0.2 E.U./d L Not Available _mehreen herring [address] [place], [address], 10/20/2024 13:44:18 10/20/20 24 10/20/2024 urina lysis , dipst ick Unknown Analyte Positi ve Not Available _mehreen herring [address] [place], [address], 10/20/2024 13:44:18 10/20/20 24 10/20/2024 urina lysis , dipst ick Unknown Analyte Small Not Available _ [place] [address] [place], [address], 10/20/2024 13:44:18 10/19/20 23 10/13/2023 XR, chest , 2 view No observ ation record ed. [facility] ([facility]) [address] [place], [address], 10/19/2023 08:17:52 Result Notes None recorded. Problems No Known Problems Medical Equipment None Reported. Allergies Allergen ID Allergen Name Allergen Category Reaction Reaction Severity Criticality Documentation Date Start Date Code Code System Note Provider Name and Address Organization Details Recorded Time 843254 Substance with sulfonami de structure and antibacte rial mechanism of action (substanc e) medicatio n Not available Not available Not available 10/12/2023 61614 3268 SNOMED GIULIA Ashby [facility] 13:38:22 797442 Product containin g penicilli n (product) medicatio n Not available Not available Not available 10/12/2023 51223 8001 SNGIULIA Thomas - [facility] 13:38:32 Medications Name Sig Start Date Stop Date Status Note LastModified by Organization Details LastModified Time albuterol sulfate 2.5 mg/3 mL (0.083 %) solution for nebulizat ion Inhale 2.5 mg by nebuliza tion route as directed for 1 day. 09/11 completed Billable unit is always one. Units are not the dose. Not Available Not Available Not Available cefpodoxi me 100 mg tablet Take 1 tablet every 12 hours by oral route for 5 days. 2023 active Not Available Not Available Not Avai lable benzonata te 200 mg capsule Take 1 capsule 3 times a day by oral route as needed for 7 days. 09/11 completed Not Available Not Available Not Available prednison e 20 mg tablet Take 2 tablets every day by oral route in the morning for 5 days. 09/11 completed Not Available Not Available Not Available Zithromax Z-Aldo 250 mg tablet Take 2 tablets 1 time a day for 1 day then one tablet daily for 4 days 11/12 completed Not Available Not Available Not Available albuterol sulfate HFA 90 mcg/actua tion aerosol inhaler Inhale 2 puffs every 4 hours by inhalati on route as needed for 10 days. 10/20 completed Not Available Not Available Not Available cefdinir 300 mg capsule Take 1 capsule every 12 hours by oral route. 11/12 completed Not Available Not Available Not Available loratadin e 10 mg tablet Take 1 tablet every day by oral route for 14 days. 11/12 completed Not Available Not Available Not Available ipratropi um bromide 0.02 % solution for inhalatio n Inhale 0.5 mg by inhalati on route as directed for 1 day. 09/11 completed Billable unit is always one. Units are not the dose. Not Available Not Available Not Available Vitamin D3 active Not Available Not Available Not Available calcium 100 mg (as calcium lactate) tablet Take by oral route. active Not Available Not Available No t Available [place] Allergy active Not Available Not Available Not Available Allergy Relief (fluticas one) 50 mcg/actua tion nasal spray,rafael pension [place] 1 spray every day by intranas al route around the clock for 90 days. 09/11 completed Not Available Not Available Not Available Vitals Date Recorded Body height Body mass index (BMI) Body weight Body temperature Respiratory rate Oxygen saturation Oxygen saturation in Arterial blood by Pulse oximetry Heart rate Systolic And Diastolic Provider Name and Address Organization Details Last Updated DateTime 4 175.26 cm 26.9 kg/m2 04694.8 1 g 97.5 [degF] 18 /min 98 % 98 % 94 /min 126/82 mm[Hg] Haven Stewart PA - [facility] 4 14:24:37 Date Recorded Body height Body mass index (BMI) Body weight Body temperature Oxygen saturation Oxygen saturation in Arterial blood by Pulse oximetry Heart rate Respiratory rate Pain severity - 0-10 verbal numeric rating [Score] - Reported Systolic And Diastolic Provider Name and Address Organization Details Last Updated DateTime 4 175.26 cm 26.6 kg/m2 90755.6 3 g 97.6 [degF] 98 % 98 % 80 /min 16 /min 6 126/73 mm[Hg] Janeen Hardwick PA - [facility] 4 12:17:43 Date Recorded Pain severity - 0-10 verbal numeric rating [Score] - Reported Body weight Body mass index (BMI) Body height Oxygen saturation Oxygen saturation in Arterial blood by Pulse oximetry Heart rate Respiratory rate Body temperature Systolic And Diastolic Provider Name and Address Organization Details Last Updated DateTime 3 4 85127.8 1 g 26.9 kg/m2 175.26 cm 99 % 99 % 78 /min 18 /min 98.6 [degF] 113/75 mm[Hg] April Huber PA - [facility] 3 13:37:55 Date Recorded Body height Body mass index (BMI) Body weight Respiratory rate Oxygen saturation Oxygen saturation in Arterial blood by Pulse oximetry Heart rate Systolic And Diastolic Provider Name and Address Organization Details Last Updated DateTime 4 175.26 cm 26.6 kg/m2 10577.6 3 g 18 /min 99 % 99 % 67 /min 134/80 mm[Hg] Jessie Workman PA - [facility] 4 13:43:53 Social History Question Answer Notes LastModified by Organizat ion Details LastModified Time Tobacco Smoking Status Never Smoker GIULIA Ashby - [facility] 10/12/2023 13:39:25 Have You Had A Flu Shot This Season? No Information not available 10/12/2023 If No, Would You Like A Flu Shot Today? No [email or web address] Information not available 09/11/2024 What Was The Date Of Your Most Recent Tobacco Screening? 10/20/2024 [email or web address] Information not available 10/20/2024 What Is Your Relationship Status? Information not available 10/12/2023 Have You Recently Traveled Abroad? No Information not available 10/12/2023 Are You Currently In School? No Information not available 10/12/2023 Sex: Unknown Functional Status Question Answer Note LastModified by Organizat ion Details LastModified Time Do you use any illicit or recreational drugs? No Information not available 10/12/2023 Do you or have you ever used any other forms of tobacco or nicotine? No Information not available 10/12/2023 What is your level of alcohol consumption? None Information not available 10/12/2023 Are you currently employed? Yes Information not available 10/12/2023 Mental Status None recorded. Family History Relationship Description Onset Age of this Age Resolved Age Notes LastModified by Organization Details LastModified Time Father No current problems or disability Not available 10/12 13:39:15 Mother No current problems or disability Not available 10/12 13:39:15 Medical History No medical history recorded. Gynecological History Statement/Question Response Is there any chance of ? No LMP N/A Obstetrics History GPAL:G 0 P 0 0 0 0 Immunizations Vaccine Type Date Status Note Provider Nam e and Address Organization Details Recorded Time IPV 2 completed Haven Terry null, PA - [facility] 11/12/2023 14:21:10 IPV 1 completed Haven Terry null, PA - [facility] 11/12/2023 14:21:10 IPV 1 completed Haven Terry null, PA - [facility] 11/12/2023 14:21:10 measles 9 completed Haven Terry null, PA - [facility] 11/12/2023 14:21:10 MMR 3 completed Haven Terry null, PA - [facility] 11/12/2023 14:21:10 MMR 3 completed Haven Terry null, PA - [facility] 11/12/2023 14:21:10 COVID-19, mRNA, LNP-S, PF, 100 mcg/0.5mL dose or 50 mcg/0.25mL dose 1 completed Haven Stewart null, PA - [facility] 11/12/2023 14:21:10 COVID-19, mRNA, LNP-S, PF, 100 mcg/0.5mL dose or 50 mcg/0.25mL dose 1 completed Haven Stewart null, PA - [facility] 11/12/2023 14:21:10 rubella 0 completed Haven Terry null, PA - [facility] 11/12/2023 14:21:10 Td(adult) unspecified formulation 4 completed Haven Terry null, PA - [facility] 11/12/2023 14:21:10 Tdap 3 completed Haven Terry null, PA - [facility] 11/12/2023 14:21:10 DTP 8 completed Haven Terry null, PA - [facility] 11/12/2023 14:21:10 DTP 1 completed Haven Terry null, PA - [facility] 11/12/2023 14:21:10 DTP 3 completed Haven Stewart null, PA - [facility] 11/12/2023 14:21:10 DTP 1 completed Haven Stewart null, PA - [facility] 11/12/2023 14:21:10 DTP 1 completed Haven Stewart null, PA - [facility] 11/12/2023 14:21:10 DTP 1 completed Haven Stewart null, PA - [facility] 11/12/2023 14:21:10 DTP 2 completed Haven Stewart null, PA - [facility] 11/12/2023 14:21:10 OPV, trivalent 9 completed Haven Stewart null, PA - [facility] 11/12/2023 14:21:10 Vaccinia (smallpox, mpox), live 2 completed Haven Stewart null, PA - [facility] 11/12/2023 14:21:10 Influenza, split virus, trivalent, preservative 0 completed Haven Stewart null, PA - [facility] 11/12/2023 14:21:10 Influenza, split virus, trivalent, preservative 8 completed Haven Stewart null, PA - [facility] 11/12/2023 14:21:10 Influenza, split virus, trivalent, preservative 9 completed Haven Stewart null, PA - [facility] 11/12/2023 14:21:10 Td (adult), 2 Lf tetanus toxoid, preservative free, adsorbed 5 completed Haven Stewart null, PA - [facility] 11/12/2023 14:21:10 Hep B, adult 3 completed Haven Stewart null, PA - [facility] 11/12/2023 14:21:10 Hep B, adult 3 completed Haven Stewart null, PA - [facility] 11/12/2023 14:21:10 Hep B, adult 3 completed Haven Stewart null, PA - [facility] 11/12/2023 14:21:10 Hep A, adult 8 completed Haven Stewart null, PA - [facility] 11/12/2023 14:21:10 Hep A, adult 8 completed Haven Stewart null, PA - [facility] 11/12/2023 14:21:10 Influenza, split virus, quadrivalent, PF 0 completed Haven Stewart null, PA - [facility] 11/12/2023 14:21:10 Influenza, split virus, quadrivalent, PF 9 completed Haven Stewart null, PA - [facility] 11/12/2023 14:21:10 Past Encounters Encounter ID Performer Location Encounter Start Date Encounter Closed Date Diagnosis/Indication Diagnosis SNOMED-CT Code Diagnosis ICD10 Code Diagnosis IMO Codes Diagnosis Note [id number] [facility] [address] [place] [address] 09/07/2022 08:36:50 09/07/2022 11:34:00 [id number] GIULIA CRAWFORD [address] [place] [address] 10/12/2023 13:17:34 10/12/2023 13:58:47 Acute pharyngitis 570290986 J02.9 Acute bronchitis 0055157 2 J20.9 [id number] [place] [address] [place] [address] 11/12/2023 14:10:27 11/12/2023 15:15:53 Acute bronchitis 56881915 J20.9 Acute bronchitis is a common clinical condition characteri zed by an acute onset but persistent cough, with or without sputum production . It is typically self-limit ed, resolving within one to three weeks. Symptoms result from inflammati on of the lower respirator y tract and are most frequently due to viral infection. Treatment is focused on patient education and supportive care. Antibiotic s are not needed for the great majority of patients with acute bronchitis but are greatly overused for this condition. Reducing antibiotic use for acute bronchitis is a national and internatio [facility] care priority. In most patients, the cough persists for 1 to 3 weeks, with a average duration of 18 days. The cough may be associated with either purulent or nonpurulen t sputum production The presence of purulent sputum is a nonspecifi c finding and does not appear to be predictive of bacterial infection or that antibiotic s are needed. For the great majority of patients, use of antibiotic s does not hasten recovery or prevent complicati ons but puts patients at increased risk of adverse effects including potentiall y severe complicati ons such as Clostridio ides difficile infection and anaphylaxi s. Non-Pharma cological treatment for coughin . Throat lozenges2. Hot tea3. Honey4. Smoking cessation5 . Avoidance of secondhand smoke. Pharmacolo gical Treatment: 1. Robatussin or Guafenasin 2. Antihistam ines3. Dextrometh oraphen I would plan on being seen again if any of the following symptoms develop:1. Fever (100.5)2. Shortness of breath3. Wheezing4. Worsening Cough. I would go to the ER if you develop:1. Severe Shortness of breath2. Chest Pain3. Wheezing4. Coughing up Blood [id number] GIULIA Lynn [address]100[address]_Had [facility] [address] [place] [address] 09/11/2024 12:08:34 09/11/2024 12:36:32 Upper respiratory infection [id number] J06.9 Patient presented with symptoms of upper respirator y infection. Advised to drink plenty of fluids, run a cool-mist humidifier in room at night, gargle salt water for sore throat, and get plenty of rest. Patient should avoid over-exert ion and reduce exposure to irritants such as smoke, cold, dry air, and dust.Treat ment currently involves symptomati c relief. Nasal sprays like nasonex and flonase (or generic) as well as neti pot to help clear sinuses Patient may take acetaminop hen or ibuprofen as directed to reduce fever and body aches.Anti histamine and decongesta nt usage was discussed and recommenda tions made.Kamran benoit understood these instructio ns and will follow up in the office in 10 days to 2 weeks if symptoms not improving. ER if any shortness of breath/en[address] st pain or worsening. Thank you for using [facility] today, please feel free to contact our office if you have any questions or concerns. [id number] GIULIA Lynn [address]100[address]_Had [address] [place] [address] 10/20/2024 13:36:12 10/20/2024 14:01:06 Acute urinary tract infection [id number] N39.0 We are treating you for a urinary tract infection based on your symptoms and in clinic testing.Yo u are being prescribed antibiotic s to treat your infection. Your urine is being sent out for culture to ensure the proper antibiotic s were prescribed . You will receive a call within 2-3 days with the results The following are recommenda tions to help with your symptoms and recovery:1 . Drink Plenty of fluids - Stay hydrated2. Finish full antibiotic course3. I recommend starting a Probiotic - I recommend Florastor4 . If you take Azo - this will help the burning and urgency feeling - just be aware it will turn your urine bright yellow. I would not hesitate to be seen again if you develop:1. Severe Back Pain2. Abdominal Pain3. Nausea and Vomiting4. Fever > 101.0 You symptoms should improve within 72 hours for a typically UTI. Thank you for using [facility] , if you have any questions or concerns please reach out us. Health Concerns Section Related Observation LastModified by Organization Detai ls LastModified Time None Recorded Concern Status LastModified by Organization Details LastModified Time None Recorded Advance Directives Directive None Recorded Payers Insurance Date Sequence Insurance Name Policy Number Policy Adams Covered Member ID Adams Member ID Guarantor Name 10/20/2024 1 [facility] [id number] Axel Anais [id number] Jennifer Manzo 09/11/2024 1 [employer] [id number] Jennifer Anias [id number] Jennifer Manzo Notes Date Note Type Note Provider Name and Address Organization Details Recorded Time 10/12/20 23 text/ht ml CoughReported by [email or web address] y.o female with no significant medical problems presents with ongoing sore throat, congestion and worsening cough that started 10 days ago. Pt was recently dx'd with Strep and given Cefdinir. Pt states her sx's are not getting better. She denies chest pain or SOB. GIULIA CRAWFORD [address] [place], [address], [place] - [facility] 10/12/2023 16:28:49 11/12/19 24 text/ht ml CoughReported by PatientHPIFor quality, patient reportsharshanddrybut reportsintermittentandsymptoms worse with lying down. For severity, patient reportsworseningandpain with coughbut reportsmoderate. For timing, patient reportsworseningbut reportsgradual. For context, patient reportshistory of bronchitisbut reportspatient denies vapingandnon-smoker. For associated symptoms, patient reportshurts to breathbut reportsno fever,no chills,no chest pain,no heartburn,no nausea,no vomiting,no edema,no agitation,no wheezing, andno post nasal drip. For source of patient information, patient reportsinformation obtained from patient,patient arrived at urgent care ambulatory, andlearning styles: auditory. For duration, patient reportsconstantandsymptoms lasting over 2 weeks. For modifying factors, patient reportsat night. Henok Sterling NP [address] [place], [address], [place] - [facility] 11/12/2023 19:02:28 09/11/20 24 text/ht ml 64 y/o female with 4 days of sore throat, congestion, cough. No fevers, chills, no body aches, SOB. Taking OTC meds with some symptom relief [place], [address], [place] - [facility] 09/11/2024 12:35:32 10/20/20 24 text/ht ml 64 y/o female here with dysuria, lower abd pain, urinary frequency since last night. No fevers, chills, no flank pain GIULIA Lynn [address] [place], [address], [place] - [facility] 10/20/2024 13:55:12 OBGyn Episode No OBEpisode recorded.
== END 2025-08-25 12:46 | disposition home or self-care (01) ==
LOC: HO.HMGAL 12:44
PROVIDERS: PCP Internal Medicine; Visit Provider Registered Nurse Emergency
DX: J30.89 Other allergic rhinitis (principal)
CPT/HCPCS: 95117; 95165

== ENCOUNTER 2025-09-04 11:35 | Outpatient (AMB) | payer BC, SELFPAY ==
[2025-09-04 11:48] VITALS: BMI 28.1
--- NOTE | 2025-09-04 11:48 | MHC.AMNUTRGE ---
VS Expanded 09/04/25 11:48 09/04/25 12:03 Height 5 ft 9 in 5 ft 9 in Weight 190 lb 190 lb BMI 28.1 28.1 Intake Visit Reasons: pre-dm, overweight Allergies Unable to Assess Allergy (Verified 09/04/22 01:37) Nutrition Presentation Details: Pt presents for MNT for Pre DM, hyperlipidemia has hx GERD stopped dairy due to bloating Takes calcium 500 mg/d ay Takes vitamin d supplement and iron 4x/wk Food frequency Fruits: 0-2 a day Vegetables once per day Dairy: Choosing alternatives Fish 0 to once a week Physical activity activities of daily living Alcohol/smoking----- XQM-Eyhikpj-Ed.Jeor Equation Height: 5 ft 9 in Weight: 190 lb Resting Metabolic Rate: 1480.46 Calculated Activity Level: Mild Activity Calories Needed to Maintain Weight: 2034.63 Diagnosis Nutrition problem #1: altered nutrition labs As related to (etiology) #1: diagnosis As evidenced by (sign/symptom) #1: abnormal serum lipids PFSH Social History Alcohol intake: never Assessment & Plan Assessment & Plan (1) Obesity (BMI 30-39.9): Code(s): E66.9 - Obesity, unspecified Category: Medical Plan: current wt: 86kg ( 09/16 ) est kcal needs as per MSJ: 2000 est protein needs as per 1 g/kg BW: 90 est fluid needs as per 30 ml/kg BW: 2600 Recommended fiber > 12 g /day and gradually increase up to 25-28 g /day or as tolerated Nutrition topics discussed : Reviewed (R), Pt verbalized understanding (V) , not applicable (N/A) R, : Healthy Plate Method Concept: R, V, N/A: Carbohydrates: food sources of carbohydrates, relationship of carbohydrates to blood glucose, fatty liver GI health. Recommended total amount of carbohydrates per meals and snack. Differences between simple carbohydrates and complex carbohydrates R, : Lean protein foods including vegan , vegetarian sources of protein. Benefits of protein (including but not limited to healing, nutritional value , benefits in weight loss, glucose control R, V, N/A: Fats : Source of fats, benefits of fats. Difference between saturated and unsaturated fats. Saturated fats and its contribution to inflammation R, V, N/A: Fiber: food sources and role of fiber in the diet (including but not limited to its role as a prebiotic, benefits in constipation, role in IBS , role in glucose control and cholesterol level) R, V, N/A: Hydration: role of hydration and prevention of dehydration or over hydration. Foods and water content. R, V, N/A: Vitamins and Minerals in foods and supplements R, V, N/A: Interpreting food labels, including serving size, macronutrients, vitamins, minerals, allergens, ingredient list , % daily value Patient Instructions: Choose fish at least twice a week Reduce on foods that are highly processes (breaded, fried, ultra processed) Keep hydrated by having water with meals or snacks, working on reducing on sugar free beverages Coding Level of Care Code Nutr Indiv Subseq (02902) Diagnoses Obesity (BMI 30-39.9) E66.9 Time Spent (min) 30
--- OUTSIDE RECORDS SUMMARY | 2025-09-04 14:46 | XMS_ITS | Clinical Summary ---
Author Organization [facility] [address] [place] [address] [place] [phone] Phone Care Team Providers Care Physicist [employer] Name Role Phone Deanna Marie MD Primary Care Provider [phone] Allergies Active Allergy Reactions Criticality Noted Date [...] Encounters Date Type Department Care Team Description 09/03/2025 Telephone Adult Medicine [address] [phone] Deanna Marie MD 08/18/2025 Telephone Adult Medicine [address] [phone] Deanna Marie MD 07/16/2025 Telephone Adult Medicine [address] [phone] Deanna Marie MD 06/27/2025 9:30 AM EDT Office Visit Adult Medicine [address] [phone] Deanna Marie MD PE (physical exam), annual (Primary Dx); Lung nodule; Prediabetes; Overweight (BMI 25.0-29.9) from Last 3 Months Immunizations Immunization Administration Dates Next Due DTP 10/23/1970,,12/07/1962,1961,1961,1961,1961 Hepatitis A Adult (Havrix; V aqta) 19yo and older 09/03/2008,01/07/2008 Hepatitis B (Riysvom-T-Lmvtv , Recombivax HB-Adult) 19yo and older 07/17/2013,02/13/2013,01/16/2013 [...] care for your loved ones. For example, attendant children's institution or elderly care for an older adult? [...] 7:30 AM EST Appointment Radiology Department - [address] [phone] Health Maintenance Due Date Last Done Comments [...] LAB CHEMISTRY METHOD 07/02/2025 10:46 AM EDT [facility] Triglycerides 59 0 - 150 mg/dL LAB CHEMISTRY METHOD 07/02/2025 10:46 AM EDT [facility] HDL 78 >=40 mg/dL LAB CHEMISTRY METHOD 07/02/2025 10:46 AM EDT [facility] LDL Calculated 126(H) 0 - 100 mg/dL LAB CHEMISTRY METHOD 07/02/2025 10:46 AM EDT [facility] Comment:Estimated LDL Calcul ated using equation: Total cholesterol - HDL cholesterol - (Triglycerides/5) VLDL Cholesterol Eugene 11.8 mg/dL LAB CHEMISTRY METHOD 07/02/2025 10:46 AM EDT [facility] Non HDL Chol. (LDL+VLDL) 138 <145 mg/dL LAB CHEMISTRY METHOD 07/02/2025 10:46 AM EDT [facility] Chol/HDL Ratio 2.8 0.0 - 4.4 LAB CHEMISTRY METHOD 07/02/2025 10:46 AM EDT [facility] Blood Venous blood specimen / Unknown Venipuncture / Unknown 07/02/2025 8:35 AM EDT 07/02/2025 8:35 AM EDT us Deanna Marie MD LAB BLOOD ORDERABLES Final Resul t [facility] [address] [place] [address], * (ABNORMAL) CBC auto differential (07/02/2025 8:35 AM EDT) WBC 6.2 4.8 - 10.8 K/mcL LAB HEMETOLOGY METHOD 07/02/2025 10:27 AM EDT [facility] RBC 4.50 3.80 - 4.80 M/mcL LAB HEMETOLOGY METHOD 07/02/2025 10:27 AM EDT [facility] Hemoglobin 13.7 11.5 - 16.0 g/dL LAB HEMETOLOGY METHOD 07/02/2025 10:27 AM EDT [facility] Hematocrit 41.4 35.0 - 47.0 % LAB HEMETOLOGY METHOD 07/02/2025 10:27 AM [facility] MCV 91.6 79.0 - 98.0 FL LAB HEMETOLOGY METHOD 07/02/2025 10:27 AM [facility] MCH 30.3 27.0 - 32.0 pcg LAB HEMETOLOGY METHOD 07/02/2025 10:27 AM [facility] MCHC 33.1 32.0 - 37.0 g/dL LAB HEMETOLOGY METHOD 07/02/2025 10:27 AM [facility] RDW 12.2 11.0 - 15.0 % LAB HEMETOLOGY METHOD 07/02/2025 10:27 AM [facility] Platelets 215 130 - 400 K/mcL LAB HEMETOLOGY METHOD 07/02/2025 10:27 AM [facility] MPV 12.3(H) 7.0 - 11.0 FL LAB HEMETOLOGY METHOD 07/02/2025 10:27 AM [facility] NRBC 0.0 <1.0 % LAB HEMETOLOGY METHOD 07/02/2025 10:27 AM [facility] NRBC Absolute 0.00 <0.10 K/mcL LAB HEMETOLOGY METHOD 07/02/2025 10:27 AM [facility] Neutrophils Relative 59.5 % LAB HEMETOLOGY METHOD 07/02/2025 10:27 AM [facility] Lymphocytes Relative 27.6 % LAB HEMETOLOGY METHOD 07/02/2025 10:27 AM [facility] Monocytes Relative 7.3 % LAB HEMETOLOGY METHOD 07/02/2025 10:27 AM [facility] Eosinophils Relative 4.7 % LAB HEMETOLOGY METHOD 07/02/2025 10:27 AM [facility] Basophils Relative 0.6 % LAB HEMETOLOGY METHOD 07/02/2025 10:27 AM EDT [facility] Immature Granulocytes Relative 0.3 % LAB HEMETOLOGY METHOD 07/02/2025 10:27 AM EDT [facility] Neutrophils Absolute 3.67 1.50 - 7.00 K/mcL LAB HEMETOLOGY METHOD 07/02/2025 10:27 AM EDT [facility] Lymphocytes Absolute 1.70 1.00 - 5.00 K/mcL LAB HEMETOLOGY METHOD 07/02/2025 10:27 AM EDT [facility] Monocytes Absolute 0.45 0.20 - 1.00 K/mcL LAB HEMETOLOGY [facility] Eosinophils Absolute 0.29 0.00 - 0.50 K/mcL LAB HEMETOLOGY METHOD 07/02/2025 10:27 AM EDT [facility] Basophils Absolute 0.04 0.00 - 0.20 K/mcL LAB HEMETOLOGY METHOD [facility]02[facility]25 [facility] Immature Granulocytes Absolute 0.02 0.00 - 0.03 K/mcL LAB HEMETOLOGY METHOD 07/02[facility]2025 10[facility] Blood Venous blood specimen / Unknown Venipuncture / Unknown 07/02/2025 8:35 AM EDT 07/02/2025 8:35 AM EDT us Deanna Marie MD LAB BLOOD ORDERABLES Final Resul t [facility] [address] [place] [address], * Hemoglobin A1c (07/02/2025 8:35 AM EDT) Hemoglobin A1C 5.8 <6.5 % LAB CHEMISTRY METHOD 07/02/2025 9:30 PM EDT [facility] Mean Bld Glu Estim. 120 mg/dL LAB CHEMISTRY METHOD 07/02/2025 9:30 PM [facility] Blood Venous blood specimen / Unknown Venipuncture / Unknown 07/02/2025 8:35 AM EDT 07/02/2025 8:35 AM EDT us Deanna Marie MD LAB BLOOD ORDERABLES Final Resul t [facility] [address] [place] [address], [place] [phone] * Comprehensive metabolic panel (07/02/2025 8:35 AM EDT) Sodium 140 133 - 145 mmol/L LAB CHEMISTRY METHOD 07/02/2025 10:46 AM [facility] Potassium 4.0 3.5 - 5.5 mmol/L LAB CHEMISTRY METHOD 07/02/2025 10:46 AM [facility] Chloride 105 96 - 110 mmol/L LAB CHEMISTRY METHOD 07/02/2025 10:46 AM [facility] CO2 32 21 - 32 mmol/L LAB CHEMISTRY METHOD 07/02/2025 10:46 AM [facility] Anion Gap 3 3 - 11 LAB CHEMISTRY METHOD 07/02/2025 10:46 AM [facility] Glucose 96 70 - 100 mg/dL LAB CHEMISTRY METHOD 07/02/2025 10:46 AM [facility] BUN 15 5 - 25 mg/dL LAB CHEMISTRY METHOD 07/02/2025 10:46 AM [facility] Creatinine 0.63 0.50 - 1.10 mg/dL LAB CHEMISTRY METHOD 07/02/2025 10:46 AM [facility] eGFR 99 >=60 mL/min/1. 73m2 LAB CHEMISTRY METHOD 07/02/2025 10:[facility] Comment:Calculation based on the Chronic Kidney Disease Epidemiology Collaboration (CKD-EPI) equation refit without adjustment for race. BUN/Creatinine Ratio 23.8 LAB CHEMISTRY METHOD 07/02/2025 10:46 AM [facility] Calcium 9.1 8.5 - 10.5 mg/dL LAB CHEMISTRY METHOD 07/02/2025 10:46 AM [facility] AST (SGOT) 18 10 - 42 unit/L LAB CHEMISTRY METHOD 07/02/2025 10:46 AM [facility] ALT (SGPT) 30 10 - 60 unit/L LAB CHEMISTRY METHOD 07/02/2025 10:46 AM [facility] Alkaline Phosphatase 91 42 - 121 unit/L LAB CHEMISTRY METHOD 07/02/2025 10:46 AM [facility] Total Protein 6.4 6.0 - 8.0 g/dL LAB CHEMISTRY METHOD 07/02/2025 10:46 AM [facility] Albumin 3.9 3.2 - 5.0 g/dL LAB CHEMISTRY METHOD 07/02/2025 10:46 AM [facility] Total Bilirubin 0.6 0.0 - 1.4 mg/dL LAB CHEMISTRY METHOD 07/02/2025 10:46 AM [facility] Blood Venous blood specimen / Unknown Venipuncture / Unknown 07/02/2025 8:35 AM EDT 07/02/2025 8:35 AM EDT us Deanna Marie MD LAB BLOOD ORDERABLES Final Resul t [facility] [address] [place] [address], * MG Mammo Digital Screening w Amador bilat (11/01/2024 4:19 PM EST) Anatomical Region Laterality Modality Breast Bilateral Mammography 11/04/2024 6:15 PM EST Impressions 11/04/2024 6:20 PM EST No mammographic evidence of malignancy. BI-RADS CATEGORY: 1 - NEGATIVE RECOMMENDATION: Screening bilateral mammogram is recommended in 1 year. Mammo Location: [facility], [address] [place] [address], [phone], . -------- FINAL REPORT -------- Dictated By: Nicolasa Sheth Dictated Date: 11/04/2024 18:15 ET Assigned Physician: Nicolasa Sheth Reviewed and Electronically Signed By: Nicolasa Sheth Signed Date: 11/04/2024 18:20 ET Workstation ID: [id number] Transcribed By: Self Edit Transcribed Date: 11/04/2024 [...] is recommended in 1 year. Mammo Location: [facility], [address] [place] [address], [phone], . -------- FINAL REPORT -------- Dictated By: Nicolasa Sheth Dictated Date: 11/04/2024 18:15 ET Assigned Physician: Nicolasa Sheth Reviewed and Electronically Signed By: Nicolasa Sheth Signed Date: 11/04/2024 18:20 ET Workstation ID: [id number] Transcribed By: Self Edit Transcribed Date: 11/04/2024 18:15 ET Deanna Marie MD IMG BI PROCEDURES Final Result * Colonoscopy (04/07/2022) [facility] Colonoscopy No interpretation , abstracted Anatomical Region Laterality Modality Other [facility] Provider HEALTH MAINTENANCE Final Result * Cervical Cancer Screening: HPV (11/23/2021) [facility] Cervical Cancer Screening: HPV Negative, abstracted Historical Provider HEALTH MAINTENANCE Final Result * Hepatitis C Screening (12/13/2014) [facility] Hepatitis C Screening Abstracted Historical Provider HEALTH MAINTENANCE Final Result from Last 3 Months or Most Recently Relevant to Health Maintenance Insurance [facility] Care Teams Physicist [employer] Relationship Specialty Start Date End Date Deanna Marie MD [address] [place] [phone] PCP - General Internal Medicine 06/06/22
--- OUTSIDE RECORDS SUMMARY | 2025-09-04 14:46 | XMS_ITS | Data Portability ---
Author Organization [facility], [address] Address [address] [place] [address] Assessment No assessment recorded. Plan of Treatment Reminders Order Date Submit Date Provider Last Modified By Organization Details Last Modified Time Details Appointments None recorded. Lab urinalysis, dipstick 2023 024 [email or web address] 20999_ross [facility], [address] [place], [address], 4 13:53:44 culture, urine 2023 024 [facility], [address] [place] [address], [place], [address], 4 22:05:36 rapid strep group A, throat 2023 024 [email or web address] _[facility] [place], [address] [place], [address], 4 12:34:27 Referral None recorded. Procedures None recorded. Surgeries None recorded. Imaging XR, chest, 2 view 2022 023 [facility], [address] [place] [address], [place], [address], 3 08:04:33 Medication Orders cefpodoxime 100 mg tablet 2023 024 [facility], [address] [place], [address], 4 13:53:46 albuterol sulfate 2.5 mg/3 mL (0.083 %) solution for nebulizatio n 2023 024 [email or web address] Not available 4 12:12:46 ipratropium bromide 0.02 % solution for inhalation 2023 024 [email or web address] Not available 4 12:12:29 albuterol sulfate HFA 90 mcg/actuati on aerosol inhaler 2023 024 [email or web address] [facility], [address] [place], [address], 4 13:42:07 benzonatate 200 mg capsule 2023 024 [email or web address] [facility], [address] [place], [address], 4 12:12:15 prednisone 20 mg tablet 2023 024 [email or web address] [facility], [address] [place], [address], 4 12:12:35 Allergy Relief (fluticason e) 50 mcg/actuati on nasal spray,suspe nsion 2023 024 [email or web address] [facility], [address] [place], [address], 4 12:14:49 Zithromax Z-Aldo 250 mg tablet 2022 023 NEETA [facility], [address] [place], [address], 4 14:22:12 benzonatate 200 mg capsule 2022 023 [email or web address] [facility], [address] [place], [address], 4 12:12:15 loratadine 10 mg tablet 2022 023 NEETA [facility], [address] [place], [address], 4 14:22:32 albuterol sulfate HFA 90 mcg/actuati on aerosol inhaler 2022 023 [email or web address] [facility], [address] [place], [address], 4 13:42:07 prednisone 20 mg tablet 2022 023 [email or web address] [facility], [address] [facility], [address], 4 12:12:35 Patient TargetsNo targets recorded. Patient Instructions Encounter Date Encounter Id Patient Instructions Last Modified By Organization Details Last Modified Time 10/12/2023 [id number] cough: care instructions [email or web address] Not available 10/12/2023 13:56:52 acute bronchitis education [email or web address] Not available 10/12/2023 13:56:52 bronchitis: care instructions Not available 10/12/2023 13:56:52 Based on your [...] 6. Severe Headache Thank you for using [facility] today, please feel free to contact our office if you have any questions or concerns. [email or web address] Not available 10/12/2023 13:56:45 A/P: STREP PHaryngitis with resp manifestations. Due to exam, patient WAS GIVEN an added z-pack. A CXR, and additional meds were also prescribed/written. In person f/u also warranted. Pt agreed to plan. [email or web address] Not available 10/12/2023 16:28:45 11/12/2023 [id number] peak flow* NEETA Not available 10/24 15:09:34 [...] expected. [email or web address] Not available 11/12/2023 14:38:10 09/11/2024 [id number] upper respirator y infection (cold): care instructions [email or web address] Not available 09/11/2024 12:34:27 Reason for Referral None Reported. Results Created Date Observation Date Name Description Value Unit Range Abnormal Flag Note LastModifiedBy Organization Detail LastModifiedTime 11/12/19 24 11/12/2023 peak flow* Pre (L/min) 315 Not Available [address] [place], [address], 11/12/2023 15:07:15 11/12/19 24 11/12/2023 peak flow* Post (L/min) 300 Not Available ross [address] [place], [address], 11/12/2023 15:07:15 11/12/19 24 11/12/2023 peak flow* Oxygen Saturation 99 Not Available ross [address] [place], [address], 11/12/2023 15:07:15 11/12/19 24 11/12/2023 peak flow* Pulse 93 Not Available pia patricia [address] [place], [address], 11/12/2023 15:07:15 09/11/20 24 09/11/2024 rapid strep group A, throa t Unknown Analyte negati ve Not Available mehreen herring [address] [place], [address], 09/11/2024 12:25:31 10/20/20 24 10/22/2024 URINE CULTU RE, ROUTI NE urine culture, routine FINAL REPORT abnormal Not Available [facility] ([facility]) [address] [facility], [place], [address], 10/22/2024 10:05:49 10/20/20 24 10/22/2024 URINE CULTU [...] Prote us mirab ilis. Not Available [facility] ([facility]) [address] [facility], [place], [address], 10/22/2024 10:05:49 10/20/20 24 10/22/2024 URINE CULTU [...] thopr im/Henry lfa R Not Available [facility] ([facility]) [address] [facility], [place], [address], 10/22/2024 10:05:49 10/20/20 24 10/20/2024 urina lysis , dipst ick Unknown Analyte Normal = light yellow Not Available mehreen herring [address] [place], [address], 10/20/2024 13:44:18 10/20/20 24 10/20/2024 urina lysis , dipst ick Unknown Analyte Normal = clear Not Available [facility] [address] [place], [address], 10/20/2024 13:44:18 10/20/20 24 10/20/2024 urina lysis , dipst ick Unknown Analyte Normal = negati ve Not Available [facility] [address] [place], [address], 10/20/2024 13:44:18 10/20/20 24 10/20/2024 urina lysis , dipst ick Unknown Analyte Normal = Negati ve Not Available [facility] [address] [place], [address], 10/20/2024 13:44:18 10/20/20 24 10/20/2024 urina lysis , dipst ick Unknown Analyte Normal = Negati ve Not Available [facility] [address] [place], [address], 10/20/2024 13:44:18 10/20/20 24 10/20/2024 urina lysis , dipst ick Unknown Analyte Normal = 1.010, 1.015, 1.020 Not Available [facility] [address] [place], [address], 10/20/2024 13:44:18 10/20/20 24 10/20/2024 urina lysis , dipst ick Unknown Analyte Normal = Negati ve Not Available mehreen herring [address] [place], [address], 10/20/2024 13:44:18 10/20/20 24 10/20/2024 urina lysis , dipst ick Unknown Analyte Normal = 6.5, 7.0, 7.5, 8.0 Not Available mehreen herring [address] [place], [address], 10/20/2024 13:44:18 10/20/2010/20/2024 urina lysis , dipst ick Unknown Analyte Normal = Negati ve Not Available mehreen herring [address] [place], [address], 10/20/2024 13:44:18 10/20/20 24 10/20/2024 urina lysis , dipst ick Unknown Analyte Normal = 0.2, 1.0 Not Available [facility] [address] [place], [address], 10/20/2024 13:44:18 10/20/20 24 10/20/2024 urina lysis , dipst ick Unknown Analyte Normal = Negati ve Not Available [facility] [address] [place], [address], 10/20/2024 13:44:18 10/20/20 24 10/20/2024 urina lysis , dipst ick Unknown Analyte Normal = Negati ve Not Available [facility] [address] [place], [address], 10/20/2024 13:44:18 10/20/20 24 10/20/2024 urina lysis , dipst ick Unknown Analyte Yellow Not Available ross [address] [place], [address], 10/20/2024 13:44:18 10/20/20 24 10/20/2024 urina lysis , dipst ick Unknown Analyte Clear Not Available _ ross [address] [place], [address], 10/20/2024 13:44:18 10/20/20 24 10/20/2024 urina lysis , dipst ick Unknown Analyte Negati ve Not Available _mehreen herring [address] [place], [address], 10/20/2024 13:44:18 10/20/20 24 10/20/2024 urina lysis , dipst ick Unknown Analyte Negati ve Not Available _mehreen herring [address] [place], [address], 10/20/2024 13:44:18 10/20/20 24 10/20/2024 urina lysis , dipst ick Unknown Analyte Negati ve Not Available _mehreen herring [address] [place], [address], 10/20/2024 13:44:18 10/20/20 24 10/20/2024 urina lysis , dipst ick Unknown Analyte 1.020 Not Available _ ross [address], [address], 10/20/2024 13:44:18 10/20/20 24 10/20/2024 urina lysis , dipst ick Unknown Analyte Small Not Available _ ross [address], [address], 10/20/2024 13:44:18 10/20/20 24 10/20/2024 urina lysis , dipst ick Unknown Analyte 6.5 Not Available _ ross [address] [place], [address], 10/20/2024 13:44:18 10/20/20 24 10/20/2024 urina lysis , dipst ick Unknown Analyte 30 mg/dL Not Available _mehreen herring [facility] [address] [place], [address], 10/20/2024 13:44:18 10/20/20 24 10/20/2024 urina lysis , dipst ick Unknown Analyte 0.2 E.U./d L Not Available _mehreen [address]ring [address] [place], [address], 10/20/2024 13:44:18 10/20/20 24 10/20/2024 urina lysis , dipst ick Unknown Analyte Positi ve Not Available _mehreen herring [address] [place], [address], 10/20/2024 13:44:18 10/20/20 24 10/20/2024 urina lysis , dipst ick Unknown Analyte Small Not Available _ ross [address] [place], [address], 10/20/2024 13:44:18 10/19/20 23 10/13/2023 XR, chest , 2 view No observ ation record ed. [facility] ([facility]) [address] [place], [address], 10/19/2023 08:17:52 Result Notes None recorded. Problems No Known Problems Medical Equipment None Reported. Allergies Allergen ID Allergen Name Allergen Category Reaction Reaction Severity Criticality Documentation Date Start Date Code Code System Note Provider Name and Address Organization Details Recorded Time 110853 Substance with sulfonami de structure and antibacte rial mechanism of action (substanc e) medicatio n Not available Not available Not available 10/12/2023 64057 1029 SNOMED GIULIA Ashby [facility] 13:38:22 676120 Product containin g penicilli n (product) medicatio n Not available Not available Not available 10/12/2023 75265 8001 SNGIULIA Thomas - [facility] 13:38:32 [...] one) 50 mcg/actua tion nasal spray,rafael pension [place] 1 spray every day by intranas al [...] Updated DateTime 4 175.26 cm 26.9 kg/m2 58089.8 1 g 97.5 [degF] 18 /min 98 % 98 % 94 /min 126/82 mm[Hg] Haven Stewart PA - [facility] 4 14:24:37 Date Recorded Body height Body mass index (BMI) Body weight Body temperature Oxygen saturation Oxygen saturation in Arterial blood by Pulse oximetry Heart rate Respiratory rate Pain severity - 0-10 verbal numeric rating [Score] - Reported Systolic And Diastolic Provider Name and Address Organization Details Last Updated DateTime 4 175.26 cm 26.6 kg/m2 58257.6 3 g 97.6 [degF] 98 % 98 [...] Organization Details Last Updated DateTime 3 4 58736.8 1 g 26.9 kg/m2 175.26 cm 99 [...] Updated DateTime 4 175.26 cm 26.6 kg/m2 20608.6 3 g 18 /min 99 % 99 [...] dose or 50 mcg/0.25mL dose 1 completed Hvaen Stewart null, PA - [facility] 11/12/2023 [...] ICD10 Code Diagnosis IMO Codes Diagnosis Note [id number] [facility] [facility] [address] [facility] [address] [place] [address] 09/07/2022 08:36:50 09/07/2022 11:34:00 [id number] GIULIA CRAWFORD [address] [place] [address] 10/12/2023 13:17:34 10/12/2023 13:58:47 Acute pharyngitis 454037675 J02.9 Acute bronchitis 1874908 2 J20.9 [id number] [place] [address] [place] [address] 11/12/2023 14:10:27 11/12/2023 15:15:53 Acute bronchitis 62456882 J20.9 Acute bronchitis is a common clinical [...] acute bronchitis is a national and internatio formerly [facility] health care priority. In most patients, the [...] breath2. Chest Pain3. Wheezing4. Coughing up Blood [id number] GIULIA Lynn [address] [facility] [address] [place] [address] 09/11/2024 12:08:34 09/11/2024 12:36:32 Upper respiratory infection 24799002 J06.9 Patient presented with symptoms of upper [...] pain or worsening. Thank you for using [facility] today, please feel free to contact our office if you have any questions or concerns. [id number] GIULIA Lynn [address] [place] [address] 10/20/2024 13:36:12 10/20/2024 14:01:06 Acute urinary tract infection 384591635 N39.0 We are treating you for a [...] a typically UTI. Thank you for using [facility] , if you have any questions or concerns please reach out us. Health Concerns Section Related Observation LastModified by Organization Detai ls LastModified Time None Recorded Concern Status LastModified by Organization Details LastModified Time None Recorded Advance Directives Directive None Recorded Payers Insurance Date Sequence Insurance Name Policy Number Policy Adams Covered Member ID Adams Member ID Guarantor Name 10/20/2024 1 [facility]: [facility] [place] [id number] Axel Anais [id number] Jennifer Manzo 09/11/2024 1 [employer] [id number] Jennifer Anais [id number] Jennifer Manzo Notes Date Note Type Note Provider Name and Address Organization Details Recorded Time 10/12/20 23 text/ht ml CoughReported by [email or web address] y.o female with no significant medical problems presents with ongoing sore throat, congestion and worsening cough that started 10 days ago. Pt was recently dx'd with Strep and given Cefdinir. Pt states her sx's are not getting better. She denies chest pain or SOB. GIULIA CRAWFORD [address] [place], [address], [place] - [facility] 10/12/2023 16:28:49 11/12/19 [...] Henok Sterling NP [address] [place], [address], [place] - [facility] 11/12/2023 19:02:28 09/11/20 24 text/ht ml 64 y/o female with 4 days of sore throat, congestion, cough. No fevers, chills, no body aches, SOB. Taking OTC meds with some symptom relief [place], [address], [place] - [facility] 09/11/2024 12:35:32 10/20/20 24 text/ht ml 64 y/o female here with dysuria, lower abd pain, urinary frequency since last night. No fevers, chills, no flank pain GIULIA Lynn [address] [place], [address], [place] - [facility] 10/20/2024 13:55:12 OBGyn Episode No OBEpisode recorded.
--- OUTSIDE RECORDS SUMMARY | 2025-09-04 14:46 | XMS_ITS | Encounter Summary ---
[facility] [place] [address] Care Team Providers Care Business Banking Representative Name Role Phone Deanna Marie MD Primary Care Provider [phone] Reason for Referral * Consultation (Routine) - Closed Specialty Diagnoses / Procedures Referred By Alonzo stiles Referred To Contact Dermatology Diagnoses Encounter for screening for malignant neoplasm of skin Deanna Marie MD [address] [place] [address] Phone: tel: fax: Axel Alex MD [address] [facility] [address] [place] [address] Phone: tel: fax: Referral ID Status Reason Start Date Expiration Date V isits Requested Visits Authorized [id number] Closed Specialty Services Required 09/03/2025 09/03/2026 6 6 Reason for Visit * Reason Onset Date Comments Referral 09/03/2025 Dermatology Insu maynor Referral Encounter Details Date Type Department Care Team ([facility] st Contact Info) Description 09/03/2025 Telephone Adult Medicine [address] [phone] Deanna Marie MD [address] [place] [address] Social History Tobacco Use Types Packs/Day Years [...] your loved ones. For example, child care centre director or elderly care for an older adult? [...] on file documented as of this encounter Progress Notes * Michelle Avila - 09/03/2025 9:41 AM EST What insurance does the patient have today? Payor: [facility]@/@[facility]@ Referrals cannot be processed if the insurance is not accurate. If the insurance listed above is NO BILLING INFORMATION FOUND FOR THIS ENCOUNTER then the patients correct insurance must be obtainedand registered in [facility] or their referral can not be processed. Name of person calling to request this referral? Fax -[facility] Referred To Provider (Include first and last name): Axel Alex NPI (if known): [phone] Order/Specialty requested dermatology Chief Complaint (Note: This is not a body part or a procedure): Z12.83 Has the patient seen provider for this problem/Dx before? Referred To Provider Address: [address] [place] [address] Referred To Provider Referred To Provider Does patient have an appointment scheduled?: yes If yes, what is the date of the appointment?: 09/15/25 Is this a retro request? no Number of visits requested: 6 Is this appointment related to: MVA or worker compensation? no documented in this encounter Plan of Treatment Upcoming Encounters Date Type Department Care Team ([facility] st Contact Info) Description 11/03/2025 7:30 AM EST Appointment Radiology Department [address] [address] Scheduled Referrals Name Type Priority Associated Diagnoses Order Schedule Ambulatory referral to Dermatology Outpatient Referral Routine Encounter for screening for malignant neoplasm of skin Expected: 09/03/2025, Expires: 09/03/2026 documented as of this encounter Visit Diagnoses Diagnosis Encounter for screening for malignant neoplasm of skin- Primary documented in this encounter Additional Health Concerns Assessment Noted Time PHQ-9 Depression Total Score: 0 06/26/20 25 9:55 PM EDT documented as of this encounter Care Teams Business Banking Representative Relationship Specialty Start Date End Date Deanna Marie MD [address] [place] [address] PCP - General Internal Medicine 06/06/22 documented as of this encounter
--- OUTSIDE RECORDS SUMMARY | 2025-09-04 14:46 | XMS_ITS | Clinical Summary ---
Author Organization [facility] Address [address] [place] [address] Care Team Providers Care Blacksmith Assistant Name Role Phone Becca Butler MD Primary Care Provider [phone] Allergies Active Allergy Reactions Criticality Noted Date Comments Elemental Sulfur 05/15/2019 Nitrofurantoin 05/15/2019 Other 05/15/2019 Dust/Mold/Pollen/Grass/Trees/Weeds Penicillins 05/15/2019 Medications Medication Sig Dispensed Refills Start Date End Date Status UNABLE TO FIND Allergy Injections 0 Ac tive Fexofenadine HCl (ANDRZEJ PO) Take by mouth. 0 Active raNITIdine HCl (ACID WEARING APPAREL PRESSER PO) Take by mouth. 0 Active Multiple [...] age to complete this topic Care Teams Blacksmith Assistant Relationship Specialty Start Date End Date Becca Butler MD PCP - General Internal Medicine 05/15/19
[2025-09-10 15:06] VITALS: BMI 28.1
== END 2025-09-04 13:29 | disposition home or self-care (01) ==
LOC: HO.ENCR 11:35
PROVIDERS: PCP Internal Medicine; Visit Provider Dietitian, Registered
DX: E66.9 Obesity, unspecified (principal)

== ENCOUNTER → 2025-09-04 11:35 | Outpatient (BNVA) | payer BC, SELFPAY | PROVIDERS: PCP Internal Medicine; Visit Provider Dietitian, Registered | DX: E66.9 Obesity, unspecified (principal); R73.03 Prediabetes; Z68.28 Body mass index [BMI] 28.0-28.9, adult; Z71.3 Dietary counseling and surveillance | CPT/HCPCS: 97803 ==

== ENCOUNTER 2025-09-22 11:07 | Outpatient (AMB) | payer BC, SELFPAY ==
--- OUTSIDE RECORDS SUMMARY | 2025-09-22 14:33 | XMS_ITS | Clinical Summary ---
Author Organization [facility] [address] [place] [address] [place] [phone] Phone Care Team Providers Care Fitness Director Name Role Phone Deanna Marie MD Primary Care Provider [phone] Allergies Active Allergy Reactions Criticality Noted Date [...] Care Team Description 09/03/2025 Telephone Adult Medicine [address] [phone] Deanna Marie MD 08/18/2025 Telephone Adult Medicine [address] [phone] Deanna Marie MD 07/16/2025 Telephone Adult Medicine [address] [phone] Deanna Marie MD 06/27/2025 9:30 AM EDT Office Visit Adult Medicine [address] [phone] Deanna Marie MD PE (physical exam), annual (Primary Dx); Lung nodule; Prediabetes; Overweight (BMI 25.0-29.9) from Last 3 Months Immunizations Immunization Administration Dates Next Due DTP 10/23/1970,,12/07/1962,1961,1961,1961,1961 Hepatitis A Adult (Havrix; V aqta) 19yo and older 09/03/2008,01/07/2008 Hepatitis B (Pgtnmlq-L-Ppnrl , Recombivax HB-Adult) 19yo and older 07/17/2013,02/13/2013,01/16/2013 [...] for your loved ones. For example, children's program coordinator or elderly care for an older adult? [...] 7:30 AM EST Appointment Radiology Department - [address] [phone] Health Maintenance Due Date Last Done Comments [...] LAB CHEMISTRY METHOD 07/02/2025 10:46 AM EDT [facility] Triglycerides 59 0 - 150 mg/dL LAB CHEMISTRY METHOD 07/02/2025 10:46 AM EDT [facility] HDL 78 >=40 mg/dL LAB CHEMISTRY METHOD 07/02/2025 10:46 AM EDT [facility] LDL Calculated 126(H) 0 - 100 mg/dL LAB CHEMISTRY METHOD 07/02/2025 10:46 AM EDT [facility] Comment:Estimated LDL Calcul ated using equation: Total cholesterol - HDL cholesterol - (Triglycerides/5) VLDL Cholesterol Eugene 11.8 mg/dL LAB CHEMISTRY METHOD 07/02/2025 10:46 AM EDT [facility] Non HDL Chol. (LDL+VLDL) 138 <145 mg/dL LAB CHEMISTRY METHOD 07/02/2025 10:46 AM EDT [facility] Chol/HDL Ratio 2.8 0.0 - 4.4 LAB CHEMISTRY METHOD 07/02/2025 10:46 AM EDT [facility] Blood Venous blood specimen / Unknown Venipuncture / Unknown 07/02/2025 8:35 AM EDT 07/02/2025 8:35 AM EDT us Deanna Marie MD LAB BLOOD ORDERABLES Final Resul t [facility] [address] [place] [address], * (ABNORMAL) CBC auto differential (07/02/2025 8:35 AM EDT) WBC 6.2 4.8 - 10.8 K/mcL LAB HEMETOLOGY METHOD 07/02/2025 10:27 AM EDT [facility] RBC 4.50 3.80 - 4.80 M/mcL LAB HEMETOLOGY METHOD 07/02/2025 10:27 AM EDT [facility] Hemoglobin 13.7 11.5 - 16.0 g/dL LAB HEMETOLOGY METHOD 07/02/2025 10:27 AM EDT [facility] Hematocrit 41.4 35.0 - 47.0 % LAB HEMETOLOGY METHOD 07/02/2025 10:27 AM [facility] MCV 91.6 79.0 - 98.0 FL LAB HEMETOLOGY METHOD 07/02/2025 10:27 AM [facility] MCH 30.3 27.0 - 32.0 pcg LAB HEMETOLOGY METHOD 07/02/2025 10:27 AM [facility] MCHC 33.1 32.0 - 37.0 g/dL LAB HEMETOLOGY METHOD 07/02/2025 10:27 AM [facility] RDW 12.2 11.0 - 15.0 % LAB HEMETOLOGY METHOD 07/02/2025 10:27 AM [facility] Platelets 215 130 - 400 K/mcL LAB HEMETOLOGY METHOD 07/02/2025 10:27 AM [facility] MPV 12.3(H) 7.0 - 11.0 FL LAB HEMETOLOGY METHOD 07/02/2025 10:27 AM [facility] NRBC 0.0 <1.0 % LAB HEMETOLOGY METHOD 07/02/2025 10:27 AM [facility] NRBC Absolute 0.00 <0.10 K/mcL LAB HEMETOLOGY METHOD 07/02/2025 10:27 AM [facility] Neutrophils Relative 59.5 % LAB HEMETOLOGY METHOD 07/02/2025 10:27 AM [facility] Lymphocytes Relative 27.6 % LAB HEMETOLOGY METHOD 07/02/2025 10:27 AM [facility] Monocytes Relative 7.3 % LAB HEMETOLOGY METHOD 07/02/2025 10:27 AM [facility] Eosinophils Relative 4.7 % LAB HEMETOLOGY METHOD 07/02/2025 10:27 AM [facility] Basophils Relative 0.6 % LAB HEMETOLOGY METHOD 07/02/2025 10:27 AM EDT [facility] Immature Granulocytes Relative 0.3 % LAB HEMETOLOGY METHOD 07/02/2025 10:27 AM EDT [facility] Neutrophils Absolute 3.67 1.50 - 7.00 K/mcL LAB HEMETOLOGY METHOD 07/02/2025 10:27 AM EDT [facility] Lymphocytes Absolute 1.70 1.00 - 5.00 K/mcL LAB HEMETOLOGY METHOD 07/02/2025 10:27 AM EDT [facility] Monocytes Absolute 0.45 0.20 - 1.00 K/mcL LAB [facility]OLOGY [facility] Eosinophils Absolute 0.29 0.00 - 0.50 K/mcL LAB HEMETOLOGY METHOD 07/02/2025 10:27 AM EDT [facility] Basophils Absolute 0.04 0.00 - 0.20 K/mcL LAB HEMETOLOGY METHOD [facility] Immature Granulocytes Absolute 0.02 0.00 - 0.03 K/mcL LAB HEMETOLOGY METHOD 07[facility]02[facility]2025 [facility] Blood Venous blood specimen / Unknown Venipuncture / Unknown 07/02/2025 8:35 AM EDT 07/02/2025 8:35 AM EDT us Deanna Marie MD LAB BLOOD ORDERABLES Final Resul t [facility] [address] [place] [address], * Hemoglobin A1c (07/02/2025 8:35 AM EDT) Hemoglobin A1C 5.8 <6.5 % LAB CHEMISTRY METHOD 07/02/2025 9:30 PM EDT [facility] Mean Bld Glu Estim. 120 mg/dL LAB CHEMISTRY METHOD 07/02/2025 9:30 PM [facility] Blood Venous blood specimen / Unknown Venipuncture / Unknown 07/02/2025 8:35 AM EDT 07/02/2025 8:35 AM EDT us Deanna Marie MD LAB BLOOD ORDERABLES Final Resul t [facility] [address] [place] [address], [place] [phone] * Comprehensive metabolic panel (07/02/2025 8:35 AM EDT) Sodium 140 133 - 145 mmol/L LAB CHEMISTRY METHOD 07/02/2025 10:46 AM [facility] Potassium 4.0 3.5 - 5.5 mmol/L LAB CHEMISTRY METHOD 07/02/2025 10:46 AM [facility] Chloride 105 96 - 110 mmol/L LAB CHEMISTRY METHOD 07/02/2025 10:46 AM [facility] CO2 32 21 - 32 mmol/L LAB CHEMISTRY METHOD 07/02/2025 10:46 AM [facility] Anion Gap 3 3 - 11 LAB CHEMISTRY METHOD 07/02/2025 10:46 AM [facility] Glucose 96 70 - 100 mg/dL LAB CHEMISTRY METHOD 07/02/2025 10:46 AM [facility] BUN 15 5 - 25 mg/dL LAB CHEMISTRY METHOD 07/02/2025 10:46 AM [facility] Creatinine 0.63 0.50 - 1.10 mg/dL LAB CHEMISTRY METHOD 07/02/2025 10:46 AM [facility] eGFR 99 >=60 mL/min/1. 73m2 LAB CHEMISTRY METHOD 07/02/2025 10:[facility] Comment:Calculation based on the Chronic Kidney Disease Epidemiology Collaboration (CKD-EPI) equation refit without adjustment for race. BUN/Creatinine Ratio 23.8 LAB CHEMISTRY METHOD 07/02/2025 10:46 AM [facility] Calcium 9.1 8.5 - 10.5 mg/dL LAB CHEMISTRY METHOD 07/02/2025 10:46 AM [facility] AST (SGOT) 18 10 - 42 unit/L LAB CHEMISTRY METHOD 07/02/2025 10:46 AM [facility] ALT (SGPT) 30 10 - 60 unit/L LAB CHEMISTRY METHOD 07/02/2025 10:46 AM [facility] Alkaline Phosphatase 91 42 - 121 unit/L LAB CHEMISTRY METHOD 07/02/2025 10:46 AM [facility] Total Protein 6.4 6.0 - 8.0 g/dL LAB CHEMISTRY METHOD 07/02/2025 10:46 AM [facility] Albumin 3.9 3.2 - 5.0 g/dL LAB CHEMISTRY METHOD 07/02/2025 10:46 AM [facility] Total Bilirubin 0.6 0.0 - 1.4 mg/dL LAB CHEMISTRY METHOD 07/02/2025 10:46 AM [facility] Blood Venous blood specimen / Unknown Venipuncture / Unknown 07/02/2025 8:35 AM EDT 07/02/2025 8:35 AM EDT us Deanna Marie MD LAB BLOOD ORDERABLES Final Resul t [facility] [address] [place] [address], * MG Mammo Digital Screening w Amador bilat (11/01/2024 4:19 PM EST) Anatomical Region Laterality Modality Breast Bilateral Mammography 11/04/2024 6:15 PM EST Impressions 11/04/2024 6:20 PM EST No mammographic evidence of malignancy. BI-RADS CATEGORY: 1 - NEGATIVE RECOMMENDATION: Screening bilateral mammogram is recommended in 1 year. Mammo Location: [facility], [address] [place] [address], [phone], . -------- FINAL REPORT -------- Dictated By: Nicolasa Sheth Dictated Date: 11/04/2024 18:15 ET Assigned Physician: Nicolasa Sheth Reviewed and Electronically Signed By: Nicolasa Sheth Signed Date: 11/04/2024 18:20 ET Workstation ID: [id number] Transcribed By: Self Edit Transcribed Date: 11/04/2024 [...] is recommended in 1 year. Mammo Location: [facility], [address] [place] [address], [id number], . -------- FINAL REPORT -------- Dictated By: Nicolasa Sheth Dictated Date: 11/04/2024 18:15 ET Assigned Physician: Nicolasa Sheth Reviewed and Electronically Signed By: Nicolasa Sheth Signed Date: 11/04/2024 18:20 ET Workstation ID: [id number] Transcribed By: Self Edit Transcribed Date: 11/04/2024 18:15 ET Deanna Marie MD IMG BI PROCEDURES Final Result * Colonoscopy (04/07/2022) [facility] Colonoscopy No interpretation , abstracted Anatomical Region Laterality Modality Other [facility] Provider HEALTH MAINTENANCE Final Result * Cervical Cancer Screening: HPV (11/23/2021) [facility] Cervical Cancer Screening: HPV Negative, abstracted Historical Provider HEALTH MAINTENANCE Final Result * Hepatitis C Screening (12/13/2014) [facility] Hepatitis C Screening Abstracted Historical Provider HEALTH MAINTENANCE Final Result from Last 3 Months or Most Recently Relevant to Health Maintenance Insurance [employer] Care Teams Fitness Director Relationship Specialty Start Date End Date Deanna Marie MD [address] [place] [phone] PCP - General Internal Medicine 06/06/22
--- OUTSIDE RECORDS SUMMARY | 2025-09-22 14:33 | XMS_ITS | Clinical Summary ---
Author Organization [facility] Address [address] [place] [address] Care Team Providers Care Coke Oven Mason Name Role Phone Becca Butler MD Primary Care Provider [phone] Allergies Active Allergy Reactions Criticality Noted Date Comments Elemental Sulfur 05/15/2019 Nitrofurantoin 05/15/2019 Other 05/15/2019 Dust/Mold/Pollen/Grass/Trees/Weeds Penicillins 05/15/2019 Medications Medication Sig Dispensed Refills Start Date End Date Status UNABLE TO FIND Allergy Injections 0 Ac tive Fexofenadine HCl (ANDRZEJ PO) Take by mouth. 0 Active raNITIdine HCl (ACID BAG MACHINE OPERATOR PO) Take by mouth. 0 Active Multiple [...] age to complete this topic Care Teams Coke Oven Mason Relationship Specialty Start Date End Date Becca Butler MD PCP - General Internal Medicine 05/15/19
--- OUTSIDE RECORDS SUMMARY | 2025-09-22 14:33 | XMS_ITS | Encounter Summary ---
Author Organization [facility] [place] [address] Care Team Providers Care Automatic Die Cutting Machine Operator Name Role Phone Deanna Marie MD Primary Care Provider [phone] Reason for Referral * Consultation (Routine) - Closed Specialty Diagnoses / Procedures Referred By Alonzo stiles Referred To Contact Dermatology Diagnoses Encounter for screening for malignant neoplasm of skin Deanna Marie MD [address] [place] [address] Phone: tel: fax: Axel Alex MD [address] [facility] [address] [place] [address] Phone: tel: fax: Referral ID Status Reason Start Date Expiration Date V isits Requested Visits Authorized [id number] Closed Specialty Services Required 09/03/2025 09/03/2026 6 6 Reason for Visit * Reason Onset Date Comments Referral 09/03/2025 Dermatology Insu maynor Referral Encounter Details Date Type Department Care Team ([facility] st Contact Info) Description 09/03/2025 Telephone Adult Medicine [address] [phone] Deanna Marie MD [address] [place] [address] Social History Tobacco Use Types Packs/Day Years [...] for your loved ones. For example, children's service worker or elderly care for an older [...] insurance does the patient have today? Payor: @[facility]@/@[facility] [employer] [email or web address]@ Referrals cannot be processed if the insurance is not accurate. If the insurance listed above is NO BILLING INFORMATION FOUND FOR THIS ENCOUNTER then the patients correct insurance must be obtainedand registered in [facility] or their referral can not be processed. Name of person calling to request this referral? Fax -[facility] Referred To Provider (Include first and last name): Axel Alex NPI (if known): [phone] Order/Specialty requested dermatology Chief Complaint (Note: This is not a body part or a procedure): Z12.83 Has the patient seen provider for this problem/Dx before? Referred To Provider Address: [address] [place] [address] Referred To Provider Referred To Provider Does patient have an appointment scheduled?: yes If yes, what is the date of the appointment?: 09/15/25 Is this a retro request? no Number of visits requested: 6 Is this appointment related to: MVA or worker compensation? no documented in this encounter Plan of Treatment Upcoming Encounters Date Type Department Care Team ([facility] st Contact Info) Description 11/03/2025 7:30 AM EST Appointment Radiology Department [address] [phone] Scheduled Referrals Name Type Priority Associated Diagnoses [...] as of this encounter Care Teams Automatic Die Cutting Machine Operator Relationship Specialty Start Date End Date Deanna Marie MD [address] [place] [phone] PCP - General Internal Medicine 06/06/22 documented as of this encounter
== END 2025-09-22 11:07 | disposition home or self-care (01) ==
LOC: HO.HMGAL 11:07
PROVIDERS: PCP Internal Medicine; Visit Provider Registered Nurse Emergency
DX: J30.89 Other allergic rhinitis (principal)
CPT/HCPCS: 95117; 95165